=== PATIENT | male | born 1965 | race African-American/Black ===

== ENCOUNTER 2016-11-04 08:33 | Inpatient (IN) | payer OTHER ==
[2016-11-04 09:37] VITALS: BMI 23.1
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
[2016-11-04] MEDS ORDERED: MENTHOL/PHENOL 1 EACH UD MM PRN (11:49)
[2016-11-04] MEDS ORDERED: guaiFENesin/D-METHORPHAN HB 10 ML UNIT-DOSE CUPS PO PRN (11:49)
[2016-11-04] MEDS ORDERED: MAGNESIUM HYDROX 2400MG/30ML ORAL SUSPENSION 30 ML CUP PO PRN (11:49)
[2016-11-04] MEDS ORDERED: MAG HYDROX/AL HYDROX/SIMETH 30 ML UNIT-DOSE CUP PO PRN (11:49)
[2016-11-04] MEDS ORDERED: LOPERAMIDE HCL 2 MG CAPSULE PO PRN (11:49)
[2016-11-04] MEDS ORDERED: IBUPROFEN 400 MG TABLET (FP) PO PRN (11:49)
[2016-11-04] MEDS ORDERED: MAGNESIUM CITRATE 300 ML BOTTLE PO PRN (11:49)
[2016-11-04] MEDS ORDERED: hydrOXYzine PAMOATE 25 MG CAPSULE (FP) PO PRN (11:49)
[2016-11-04] MEDS ORDERED: ACETAMINOPHEN 325 MG TABLET (FP) PO PRN (11:49)
[2016-11-04] MEDS ORDERED: P-EPHED 60MG/TRIPROLIDI 2.5MG TABLET PO PRN (11:49)
[2016-11-04] MEDS ORDERED: diphenhydrAMINE HCL 50 MG CAPSULE PO PRN (11:49)
[2016-11-04 14:07] LABS: MCH 29.5 pg (25.7-33.7); MEAN CELL VOLUME 86.9 fl (80-96); MEAN PLT VOLUME 9.8 fl (7.5-11.1); PLATELET COUNT 221 K/MM3 (134-434); RDW 12.8 % (11.9-15.9); WHITE BLOOD COUNT 5.5 K/mm3 (4.0-10.0)
[2016-11-04 15:16] LABS: ALBUMIN 3.7 g/dl (3.4-5.0); BILIRUBIN,TOTAL 0.5 mg/dL (0.2-1.0); CALCIUM 8.8 mg/dL (8.5-10.1); COCKROFT - GAULT 67.03; CREATININE 1.3 mg/dL (0.7-1.3); TOT PROT 7.9 g/dl (6.4-8.2)
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
[2016-11-04] MEDS: PATIENT'S OWN MEDICATION (NON-FORMULARY) (Gabapentin [Neurontin] 800 MG) PO SCH ×2 (15:40→20:42)
[2016-11-04 16:57] LABS: URINE APPEARANCE CLEAR; URINE BILIRUBIN NEGATIVE (NEGATIVE); URINE BLOOD NEGATIVE (NEGATIVE); URINE COLOR YELLOW; URINE GLUCOSE (UA) NEGATIVE (NEGATIVE); URINE KETONE NEGATIVE (NEGATIVE); URINE LEUK ESTERASE NEGATIVE (NEGATIVE); URINE NITRITE NEGATIVE (NEGATIVE); URINE PROTEIN NEGATIVE (NEGATIVE); URINE UROBILINOGEN 2.0 E.U/dl E.U./dl (0.2-1.0)
[2016-11-04] MEDS: THIAMINE HCL 100 MG TABLET (FP) PO SCH (21:41)
[2016-11-04] MEDS: PATIENT'S OWN MEDICATION (NON-FORMULARY) (Dolutegravir Sodium 50 MG) PO SCH (21:41)
[2016-11-04] MEDS: PATIENT'S OWN MEDICATION (NON-FORMULARY) (Ritonavir [Norvir -] 100 MG) PO SCH (21:41)
[2016-11-04] MEDS: DARUNAVIR ETHANOLATE 800 MG TAB PO SCH (21:44)
[2016-11-04] MEDS: TENOFOVIR DISOPROXIL FUMARATE 300 MG TABLET PO SCH (21:44)
[2016-11-04] MEDS: traZODone HCL 50 MG TABLET (FP) PO SCH (21:44)
[2016-11-05] MEDS: PATIENT'S OWN MEDICATION (NON-FORMULARY) (Gabapentin [Neurontin] 800 MG) PO SCH ×3 (06:44→21:29)
[2016-11-05] MEDS: ASPIRIN 81 MG CHEWABLE TABLETS PO SCH (10:25)
[2016-11-05] MEDS: PRENATAL VITAMINS W/ FOLIC ACID TABLET (FP) PO SCH (10:25)
[2016-11-05] MEDS: SULFAMETHOXAZOLE/TRIMETHOPRIM 800MG/160MG D.S. TABLET PO SCH (10:25)
--- NOTE | 2016-11-05 14:30 | EKG ---
Test Reason : Blood Pressure : / mmHG Vent. Rate : 060 BPM Atrial Rate : 060 BPM P-R Int : 144 ms QRS Dur : 112 ms QT Int : 404 ms P-R-T Axes : 071 056 -08 degrees QTc Int : 404 ms SINUS RHYTHM WITH PREMATURE SUPRAVENTRICULAR COMPLEXES VOLTAGE CRITERIA FOR LEFT VENTRICULAR HYPERTROPHY NONSPECIFIC T WAVE ABNORMALITY ABNORMAL ECG NO PREVIOUS ECGS AVAILABLE Confirmed by MAXIM SHELBY MD ([id number]) on 11/05/2016 2:30:17 PM Referred By: Claudette El Confirmed By:MAXIM SHELBY MD
[2016-11-05] MEDS: DARUNAVIR ETHANOLATE 800 MG TAB PO SCH (21:29)
[2016-11-05] MEDS: PATIENT'S OWN MEDICATION (NON-FORMULARY) (Dolutegravir Sodium 50 MG) PO SCH (21:29)
[2016-11-05] MEDS: traZODone HCL 50 MG TABLET (FP) PO SCH (21:29)
[2016-11-05] MEDS: TENOFOVIR DISOPROXIL FUMARATE 300 MG TABLET PO SCH (21:29)
[2016-11-05] MEDS: PATIENT'S OWN MEDICATION (NON-FORMULARY) (Ritonavir [Norvir -] 100 MG) PO SCH (21:29)
[2016-11-05] MEDS: THIAMINE HCL 100 MG TABLET (FP) PO SCH (21:29)
[2016-11-06] MEDS: PATIENT'S OWN MEDICATION (NON-FORMULARY) (Gabapentin [Neurontin] 800 MG) PO SCH ×3 (06:32→21:27)
[2016-11-06] MEDS: PRENATAL VITAMINS W/ FOLIC ACID TABLET (FP) PO SCH (10:16)
[2016-11-06] MEDS: SULFAMETHOXAZOLE/TRIMETHOPRIM 800MG/160MG D.S. TABLET PO SCH (10:16)
[2016-11-06] MEDS: ASPIRIN 81 MG CHEWABLE TABLETS PO SCH (10:16)
[2016-11-06] MEDS: DARUNAVIR ETHANOLATE 800 MG TAB PO SCH (21:26)
[2016-11-06] MEDS: traZODone HCL 100 MG TABLET (FP) PO SCH (21:26)
[2016-11-06] MEDS: PATIENT'S OWN MEDICATION (NON-FORMULARY) (Ritonavir [Norvir -] 100 MG) PO SCH (21:26)
[2016-11-06] MEDS: TENOFOVIR DISOPROXIL FUMARATE 300 MG TABLET PO SCH (21:27)
[2016-11-06] MEDS: THIAMINE HCL 100 MG TABLET (FP) PO SCH (21:27)
[2016-11-06] MEDS: PATIENT'S OWN MEDICATION (NON-FORMULARY) (Dolutegravir Sodium 50 MG) PO SCH (21:28)
[2016-11-07] MEDS: PATIENT'S OWN MEDICATION (NON-FORMULARY) (Gabapentin [Neurontin] 800 MG) PO SCH ×3 (06:39→21:32)
[2016-11-07] MEDS: ASPIRIN 81 MG CHEWABLE TABLETS PO SCH (10:03)
[2016-11-07] MEDS: SULFAMETHOXAZOLE/TRIMETHOPRIM 800MG/160MG D.S. TABLET PO SCH (10:03)
[2016-11-07] MEDS: PRENATAL VITAMINS W/ FOLIC ACID TABLET (FP) PO SCH (10:03)
[2016-11-07] MEDS: THIAMINE HCL 100 MG TABLET (FP) PO SCH (21:32)
[2016-11-07] MEDS: TENOFOVIR DISOPROXIL FUMARATE 300 MG TABLET PO SCH (21:32)
[2016-11-07] MEDS: DARUNAVIR ETHANOLATE 800 MG TAB PO SCH (21:32)
[2016-11-07] MEDS: traZODone HCL 100 MG TABLET (FP) PO SCH (21:32)
[2016-11-07] MEDS: PATIENT'S OWN MEDICATION (NON-FORMULARY) (Dolutegravir Sodium 50 MG) PO SCH (21:32)
[2016-11-07] MEDS: PATIENT'S OWN MEDICATION (NON-FORMULARY) (Ritonavir [Norvir -] 100 MG) PO SCH (21:32)
[2016-11-08] MEDS: PATIENT'S OWN MEDICATION (NON-FORMULARY) (Gabapentin [Neurontin] 800 MG) PO SCH ×3 (05:57→21:48)
[2016-11-08] MEDS: SULFAMETHOXAZOLE/TRIMETHOPRIM 800MG/160MG D.S. TABLET PO SCH (10:18)
[2016-11-08] MEDS: ASPIRIN 81 MG CHEWABLE TABLETS PO SCH (10:18)
[2016-11-08] MEDS: PRENATAL VITAMINS W/ FOLIC ACID TABLET (FP) PO SCH (10:18)
[2016-11-08] MEDS: traZODone HCL 100 MG TABLET (FP) PO SCH (21:47)
[2016-11-08] MEDS: DARUNAVIR ETHANOLATE 800 MG TAB PO SCH (21:48)
[2016-11-08] MEDS: PATIENT'S OWN MEDICATION (NON-FORMULARY) (Dolutegravir Sodium 50 MG) PO SCH (21:49)
[2016-11-08] MEDS: PATIENT'S OWN MEDICATION (NON-FORMULARY) (Ritonavir [Norvir -] 100 MG) PO SCH (21:49)
[2016-11-08] MEDS: TENOFOVIR DISOPROXIL FUMARATE 300 MG TABLET PO SCH (21:50)
[2016-11-08] MEDS: THIAMINE HCL 100 MG TABLET (FP) PO SCH (21:50)
[2016-11-09] MEDS: PATIENT'S OWN MEDICATION (NON-FORMULARY) (Gabapentin [Neurontin] 800 MG) PO SCH ×3 (06:21→21:43)
[2016-11-09] MEDS: PRENATAL VITAMINS W/ FOLIC ACID TABLET (FP) PO SCH (10:11)
[2016-11-09] MEDS: ASPIRIN 81 MG CHEWABLE TABLETS PO SCH (10:11)
[2016-11-09] MEDS: SULFAMETHOXAZOLE/TRIMETHOPRIM 800MG/160MG D.S. TABLET PO SCH (10:11)
[2016-11-09] MEDS: traZODone HCL 100 MG TABLET (FP) PO SCH (21:42)
[2016-11-09] MEDS: DARUNAVIR ETHANOLATE 800 MG TAB PO SCH (21:42)
[2016-11-09] MEDS: THIAMINE HCL 100 MG TABLET (FP) PO SCH (21:42)
[2016-11-09] MEDS: PATIENT'S OWN MEDICATION (NON-FORMULARY) (Dolutegravir Sodium 50 MG) PO SCH (21:43)
[2016-11-09] MEDS: PATIENT'S OWN MEDICATION (NON-FORMULARY) (Ritonavir [Norvir -] 100 MG) PO SCH (21:44)
[2016-11-09] MEDS: TENOFOVIR DISOPROXIL FUMARATE 300 MG TABLET PO SCH (21:46)
[2016-11-10] MEDS: PATIENT'S OWN MEDICATION (NON-FORMULARY) (Gabapentin [Neurontin] 800 MG) PO SCH ×3 (06:37→21:47)
[2016-11-10] MEDS: PRENATAL VITAMINS W/ FOLIC ACID TABLET (FP) PO SCH (10:08)
[2016-11-10] MEDS: ASPIRIN 81 MG CHEWABLE TABLETS PO SCH (10:08)
[2016-11-10] MEDS: SULFAMETHOXAZOLE/TRIMETHOPRIM 800MG/160MG D.S. TABLET PO SCH (10:08)
[2016-11-10] MEDS: traZODone HCL 100 MG TABLET (FP) PO SCH (21:46)
[2016-11-10] MEDS: DARUNAVIR ETHANOLATE 800 MG TAB PO SCH (21:46)
[2016-11-10] MEDS: THIAMINE HCL 100 MG TABLET (FP) PO SCH (21:46)
[2016-11-10] MEDS: PATIENT'S OWN MEDICATION (NON-FORMULARY) (Ritonavir [Norvir -] 100 MG) PO SCH (21:47)
[2016-11-10] MEDS: TENOFOVIR DISOPROXIL FUMARATE 300 MG TABLET PO SCH (21:47)
[2016-11-10] MEDS: PATIENT'S OWN MEDICATION (NON-FORMULARY) (Dolutegravir Sodium 50 MG) PO SCH (21:48)
[2016-11-11] MEDS: PATIENT'S OWN MEDICATION (NON-FORMULARY) (Gabapentin [Neurontin] 800 MG) PO SCH ×3 (06:08→21:35)
[2016-11-11] MEDS: SULFAMETHOXAZOLE/TRIMETHOPRIM 800MG/160MG D.S. TABLET PO SCH (10:33)
[2016-11-11] MEDS: ASPIRIN 81 MG CHEWABLE TABLETS PO SCH (10:33)
[2016-11-11] MEDS: PRENATAL VITAMINS W/ FOLIC ACID TABLET (FP) PO SCH (10:33)
[2016-11-11] MEDS: PATIENT'S OWN MEDICATION (NON-FORMULARY) (Ritonavir [Norvir -] 100 MG) PO SCH (21:35)
[2016-11-11] MEDS: DARUNAVIR ETHANOLATE 800 MG TAB PO SCH (21:35)
[2016-11-11] MEDS: PATIENT'S OWN MEDICATION (NON-FORMULARY) (Dolutegravir Sodium 50 MG) PO SCH (21:35)
[2016-11-11] MEDS: traZODone HCL 100 MG TABLET (FP) PO SCH (21:35)
[2016-11-11] MEDS: THIAMINE HCL 100 MG TABLET (FP) PO SCH (21:35)
[2016-11-11] MEDS: TENOFOVIR DISOPROXIL FUMARATE 300 MG TABLET PO SCH (21:36)
[2016-11-12] MEDS: PATIENT'S OWN MEDICATION (NON-FORMULARY) (Gabapentin [Neurontin] 800 MG) PO SCH ×3 (06:47→21:38)
[2016-11-12] MEDS: PRENATAL VITAMINS W/ FOLIC ACID TABLET (FP) PO SCH (09:59)
[2016-11-12] MEDS: ASPIRIN 81 MG CHEWABLE TABLETS PO SCH (09:59)
[2016-11-12] MEDS: SULFAMETHOXAZOLE/TRIMETHOPRIM 800MG/160MG D.S. TABLET PO SCH (09:59)
[2016-11-12] MEDS: traZODone HCL 100 MG TABLET (FP) PO SCH (21:36)
[2016-11-12] MEDS: DARUNAVIR ETHANOLATE 800 MG TAB PO SCH (21:36)
[2016-11-12] MEDS: THIAMINE HCL 100 MG TABLET (FP) PO SCH (21:37)
[2016-11-12] MEDS: TENOFOVIR DISOPROXIL FUMARATE 300 MG TABLET PO SCH (21:37)
[2016-11-12] MEDS: PATIENT'S OWN MEDICATION (NON-FORMULARY) (Dolutegravir Sodium 50 MG) PO SCH (21:39)
[2016-11-12] MEDS: PATIENT'S OWN MEDICATION (NON-FORMULARY) (Ritonavir [Norvir -] 100 MG) PO SCH (21:40)
[2016-11-13] MEDS: PATIENT'S OWN MEDICATION (NON-FORMULARY) (Gabapentin [Neurontin] 800 MG) PO SCH ×3 (06:27→21:43)
[2016-11-13] MEDS: SULFAMETHOXAZOLE/TRIMETHOPRIM 800MG/160MG D.S. TABLET PO SCH (10:33)
[2016-11-13] MEDS: ASPIRIN 81 MG CHEWABLE TABLETS PO SCH (10:33)
[2016-11-13] MEDS: PRENATAL VITAMINS W/ FOLIC ACID TABLET (FP) PO SCH (10:33)
[2016-11-13] MEDS: THIAMINE HCL 100 MG TABLET (FP) PO SCH (21:42)
[2016-11-13] MEDS: DARUNAVIR ETHANOLATE 800 MG TAB PO SCH (21:42)
[2016-11-13] MEDS: PATIENT'S OWN MEDICATION (NON-FORMULARY) (Dolutegravir Sodium 50 MG) PO SCH (21:43)
[2016-11-13] MEDS: traZODone HCL 100 MG TABLET (FP) PO SCH (21:43)
[2016-11-13] MEDS: TENOFOVIR DISOPROXIL FUMARATE 300 MG TABLET PO SCH (21:44)
[2016-11-13] MEDS: PATIENT'S OWN MEDICATION (NON-FORMULARY) (Ritonavir [Norvir -] 100 MG) PO SCH (21:44)
[2016-11-14] MEDS: PATIENT'S OWN MEDICATION (NON-FORMULARY) (Gabapentin [Neurontin] 800 MG) PO SCH ×3 (05:57→21:38)
[2016-11-14] MEDS: ASPIRIN 81 MG CHEWABLE TABLETS PO SCH (10:17)
[2016-11-14] MEDS: SULFAMETHOXAZOLE/TRIMETHOPRIM 800MG/160MG D.S. TABLET PO SCH (10:17)
[2016-11-14] MEDS: PRENATAL VITAMINS W/ FOLIC ACID TABLET (FP) PO SCH (10:17)
[2016-11-14] MEDS: PATIENT'S OWN MEDICATION (NON-FORMULARY) (Ritonavir [Norvir -] 100 MG) PO SCH (21:38)
[2016-11-14] MEDS: THIAMINE HCL 100 MG TABLET (FP) PO SCH (21:38)
[2016-11-14] MEDS: TENOFOVIR DISOPROXIL FUMARATE 300 MG TABLET PO SCH (21:38)
[2016-11-14] MEDS: PATIENT'S OWN MEDICATION (NON-FORMULARY) (Dolutegravir Sodium 50 MG) PO SCH (21:38)
[2016-11-14] MEDS: DARUNAVIR ETHANOLATE 800 MG TAB PO SCH (21:38)
[2016-11-14] MEDS: traZODone HCL 100 MG TABLET (FP) PO SCH (21:40)
[2016-11-15] MEDS: PATIENT'S OWN MEDICATION (NON-FORMULARY) (Gabapentin [Neurontin] 800 MG) PO SCH ×3 (06:39→21:29)
[2016-11-15] MEDS: ASPIRIN 81 MG CHEWABLE TABLETS PO SCH (10:28)
[2016-11-15] MEDS: SULFAMETHOXAZOLE/TRIMETHOPRIM 800MG/160MG D.S. TABLET PO SCH (10:28)
[2016-11-15] MEDS: PRENATAL VITAMINS W/ FOLIC ACID TABLET (FP) PO SCH (10:28)
[2016-11-15] MEDS ORDERED: PT OWN MED DRAWER 7, Y5N ONE (12:46)
[2016-11-15] MEDS ORDERED: traZODone HCL 50 MG TABLET (FP) ONE (19:20)
[2016-11-15] MEDS: PATIENT'S OWN MEDICATION (NON-FORMULARY) (Dolutegravir Sodium 50 MG) PO SCH (21:28)
[2016-11-15] MEDS: traZODone HCL 100 MG TABLET (FP) PO SCH (21:28)
[2016-11-15] MEDS: PATIENT'S OWN MEDICATION (NON-FORMULARY) (Ritonavir [Norvir -] 100 MG) PO SCH (21:28)
[2016-11-15] MEDS: DARUNAVIR ETHANOLATE 800 MG TAB PO SCH (21:28)
[2016-11-15] MEDS: THIAMINE HCL 100 MG TABLET (FP) PO SCH (21:29)
[2016-11-15] MEDS: TENOFOVIR DISOPROXIL FUMARATE 300 MG TABLET PO SCH (21:29)
[2016-11-16] MEDS: PATIENT'S OWN MEDICATION (NON-FORMULARY) (Gabapentin [Neurontin] 800 MG) PO SCH ×3 (06:31→21:30)
[2016-11-16] MEDS: ASPIRIN 81 MG CHEWABLE TABLETS PO SCH (10:23)
[2016-11-16] MEDS: SULFAMETHOXAZOLE/TRIMETHOPRIM 800MG/160MG D.S. TABLET PO SCH (10:23)
[2016-11-16] MEDS: PRENATAL VITAMINS W/ FOLIC ACID TABLET (FP) PO SCH (10:23)
[2016-11-16] MEDS: DARUNAVIR ETHANOLATE 800 MG TAB PO SCH (21:30)
[2016-11-16] MEDS: traZODone HCL 100 MG TABLET (FP) PO SCH (21:30)
[2016-11-16] MEDS: PATIENT'S OWN MEDICATION (NON-FORMULARY) (Dolutegravir Sodium 50 MG) PO SCH (21:31)
[2016-11-16] MEDS: PATIENT'S OWN MEDICATION (NON-FORMULARY) (Ritonavir [Norvir -] 100 MG) PO SCH (21:32)
[2016-11-16] MEDS: TENOFOVIR DISOPROXIL FUMARATE 300 MG TABLET PO SCH (21:32)
[2016-11-16] MEDS: THIAMINE HCL 100 MG TABLET (FP) PO SCH (21:33)
[2016-11-17] MEDS: PATIENT'S OWN MEDICATION (NON-FORMULARY) (Gabapentin [Neurontin] 800 MG) PO SCH (06:24)
[2016-11-17 06:50] VITALS: BP 102/66; PULSE 114; TEMP 98
[2016-11-17] MEDS: PRENATAL VITAMINS W/ FOLIC ACID TABLET (FP) PO SCH (10:35)
[2016-11-17] MEDS: ASPIRIN 81 MG CHEWABLE TABLETS PO SCH (10:35)
[2016-11-17] MEDS: SULFAMETHOXAZOLE/TRIMETHOPRIM 800MG/160MG D.S. TABLET PO SCH (10:35)
--- NOTE | 2016-11-17 11:56 | PN ---
Psychiatric Progress Note Vital Signs: Vital Signs Period Temp Pulse Resp BP Sys/Ortiz Pulse Ox Last 24 Hr 98.0 F 114 16-18 102/66 Date of Session: 11/17/16 Chief Complaint:: discharge visit HPI: The patient is addressing alcohol abuse, cocaine, cannabis, nicotine dependence comorbid Insomnia. ROS: HIV+medically managed. Current Side Effect: No Lab tests ordered: No Lab tests reviewed: Yes Provider note:: Patient has completed today his treatment and met his goals, will continue to address his issues at [facility] treatment program. He focused on insights he gained in this treatment, importance maintain abstinence and changing behavior for the utilization supports to prevent relapses. Trazodone well tolerated, patient reports his sleeps improved and no side- efefcts reported, scripts for 30 days provided. Patient is stable for discharge. Total face to face time:: 35 Mental Status Exam - Mental Status Exam Alert and Oriented to: Time, Place, Person Cognitive Function: Good Patient Appearance: Well Groomed Mood: Hopeful Affect: Appropriate, Mood Congruent Patient Behavior: Appropriate, Cooperative Speech Pattern: Clear, Appropriate Voice Loudness: Normal Thought Process: Intact, Goal Oriented Thought Disorder: Not Present Hallucinations: Denies Suicidal Ideation: Denies Homicidal Ideation: Denies Insight/Judgement: Fair Sleep: Well Appetite: Fair Muscle strength/Tone: Normal Gait/Station: Normal Psychiatric Treatment Plan - Problem List (4) Cocaine dependence Qualifiers: Substance use status: uncomplicated Qualified Code(s): F14.20 - Cocaine dependence, uncomplicated (7) Nicotine dependence Qualifiers: Nicotine product type: cigarettes Substance use status: uncomplicated Qualified Code(s): F17.210 - Nicotine dependence, cigarettes, uncomplicated
== END 2016-11-17 11:30 | disposition home or self-care (01) | DRG 772 ==
LOC: YASAS 08:33 → Y5N 11:57
PROVIDERS: ADMIT Psychiatry & Neurology Psychiatry; ATTEND Psychiatry & Neurology Psychiatry
PROC: HZ42ZZZ Group Counseling for Substance Abuse Treatment, Cognitive-Behavioral (ICD-10-PCS; principal; 2016-11-17)
DX: F14.20 Cocaine dependence, uncomplicated (principal); F12.20 Cannabis dependence, uncomplicated; F17.210 Nicotine dependence, cigarettes, uncomplicated; F10.10 Alcohol abuse, uncomplicated; F34.1 Dysthymic disorder; Z21 Asymptomatic human immunodeficiency virus [HIV] infection status; G47.00 Insomnia, unspecified; B99.8 Other infectious disease; G63 Polyneuropathy in diseases classified elsewhere; Z59.0 Homelessness
CPT/HCPCS: 36415; 80053; 81003; 85027; 86593; 93005; 93010

== ENCOUNTER 2018-08-05 12:58 | Inpatient (IN) | payer OTHER ==
[2018-08-05 13:14] VITALS: BMI 21.7
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
[2018-08-05] MEDS ORDERED: NICOTINE POLACRILEX 2 MG GUM BC PRN (15:20)
[2018-08-05] MEDS ORDERED: hydrOXYzine PAMOATE 25 MG CAPSULE (FP) PO PRN (15:20)
[2018-08-05] MEDS ORDERED: MAG HYDROX/AL HYDROX/SIMETH 30 ML UNIT-DOSE CUP PO PRN (15:20)
[2018-08-05] MEDS ORDERED: MENTHOL/PHENOL 1 EACH UD MM PRN (15:20)
[2018-08-05] MEDS ORDERED: P-EPHED 60MG/TRIPROLIDI 2.5MG TABLET PO PRN (15:20)
[2018-08-05] MEDS ORDERED: MAGNESIUM CITRATE 300 ML BOTTLE PO PRN (15:20)
[2018-08-05] MEDS ORDERED: MAGNESIUM HYDROX 2400MG/30ML ORAL SUSPENSION 30 ML CUP PO PRN (15:20)
[2018-08-05] MEDS ORDERED: TUBERCULIN PPD 5 TU/0.1ML VIAL ID ONE ×2 (18:38→22:21)
[2018-08-05] MEDS: TENOFOVIR DISOPROXIL FUMARATE 300 MG TABLET PO SCH (21:24)
[2018-08-05] MEDS: DARUNAVIR ETHANOLATE 800 MG TAB PO SCH (21:24)
[2018-08-05] MEDS: CARVEDILOL 3.125 MG TABLET (FP) PO SCH (21:24)
[2018-08-05] MEDS: APIXABAN 5 MG TABLET PO SCH (21:24)
[2018-08-05] MEDS: THIAMINE HCL 100 MG TABLET (FP) PO SCH (21:24)
[2018-08-05] MEDS: RITONAVIR 100 MG TABLET PO SCH (21:26)
[2018-08-05] MEDS: DOLUTEGRAVIR SODIUM 50 MG TABLET (NON-FORMULARY) PO SCH (21:27)
[2018-08-05] MEDS: PATIENT'S OWN MEDICATION (NON-FORMULARY) (Gabapentin [Neurontin] 800 MG) PO SCH (21:27)
[2018-08-06] MEDS: PATIENT'S OWN MEDICATION (NON-FORMULARY) (Gabapentin [Neurontin] 800 MG) PO SCH ×3 (06:54→21:02)
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
[2018-08-06] MEDS ORDERED: FUROSEMIDE 20 MG TABLET (FP) PO SCH (10:00)
[2018-08-06] MEDS: FUROSEMIDE 40 MG TABLET (FP) PO SCH (10:45)
[2018-08-06] MEDS: LOSARTAN POTASSIUM 25 MG TABLET PO SCH (10:45)
[2018-08-06] MEDS: APIXABAN 5 MG TABLET PO SCH ×2 (10:45→21:00)
[2018-08-06] MEDS: CARVEDILOL 3.125 MG TABLET (FP) PO SCH ×2 (10:46→21:01)
[2018-08-06 10:57] LABS: PH,URINE 7.5 (5.0-8.0); URINE APPEARANCE Clear; URINE BILIRUBIN Negative (<2.0 mg/dL); URINE COLOR Yellow; URINE GLUCOSE (UA) Negative (NEGATIVE); URINE KETONE Negative (NEGATIVE); URINE LEUK ESTERASE Negative (NEGATIVE); URINE NITRITE Negative (NEGATIVE); URINE PROTEIN Negative (NEGATIVE); URINE UROBILINOGEN 0.2 mg/dL (0.2-1.0)
[2018-08-06 12:14] LABS: HEMATOCRIT 38.5 % (35.4-49); HEMOGLOBIN 13.1 GM/dL (11.7-16.9); MCH 29.6 pg (25.7-33.7); MEAN PLT VOLUME 9.5 fl (7.5-11.1); PLATELET COUNT 215 K/MM3 (134-434); RBC 4.43 M/mm3 (4.00-5.60); RDW 13.7 % (11.9-15.9); WHITE BLOOD COUNT 10.1 K/mm3 (4.0-10.0)
[2018-08-06 12:34] LABS: ALBUMIN 3.6 g/dl (3.4-5.0); ALK PHOS 63 U/L (45-117); ANION GAP 5 MMOL/L (8-16); BILIRUBIN,TOTAL 0.9 mg/dL (0.2-1); BLOOD UREA NITROGEN 17 mg/dL (7-18); CALCIUM 8.8 mg/dL (8.5-10.1); CHLORIDE 103 mmol/L (98-107); CO2 29 mmol/L (21-32); CREATININE 1.3 mg/dL (0.55-1.3); GLUCOSE,RANDOM 81 mg/dL (74-106); POTASSIUM 3.8 mmol/L (3.5-5.1); SGOT/AST 26 U/L (15-37); SGPT/ALT 26 U/L (13-61); SODIUM 136 mmol/L (136-145); TOT PROT 7.4 g/dl (6.4-8.2)
[2018-08-06] MEDS: PRENATAL VITAMINS W/ FOLIC ACID TABLET (FP) PO SCH (13:02)
[2018-08-06] MEDS ORDERED: PT OWN MED DRAWER 7, Y5N ONE ×3 (13:49→21:53)
[2018-08-06] MEDS: guaiFENesin/D-METHORPHAN HB 10 ML UNIT-DOSE CUPS PO PRN (14:04)
[2018-08-06] MEDS: DARUNAVIR ETHANOLATE 800 MG TAB PO SCH (21:00)
[2018-08-06] MEDS: THIAMINE HCL 100 MG TABLET (FP) PO SCH (21:01)
[2018-08-06] MEDS: traZODone HCL 100 MG TABLET (FP) PO SCH (21:02)
[2018-08-06] MEDS: RITONAVIR 100 MG TABLET PO SCH (21:03)
[2018-08-06] MEDS: DOLUTEGRAVIR SODIUM 50 MG TABLET (NON-FORMULARY) PO SCH (21:04)
[2018-08-06] MEDS: TENOFOVIR DISOPROXIL FUMARATE 300 MG TABLET PO SCH (21:05)
[2018-08-07] MEDS: PATIENT'S OWN MEDICATION (NON-FORMULARY) (Gabapentin [Neurontin] 800 MG) PO SCH ×3 (06:17→21:22)
[2018-08-07] MEDS: FUROSEMIDE 40 MG TABLET (FP) PO SCH (10:30)
[2018-08-07] MEDS: LOSARTAN POTASSIUM 25 MG TABLET PO SCH (10:30)
[2018-08-07] MEDS: APIXABAN 5 MG TABLET PO SCH ×2 (10:30→21:21)
[2018-08-07] MEDS: PRENATAL VITAMINS W/ FOLIC ACID TABLET (FP) PO SCH (10:30)
[2018-08-07] MEDS: CARVEDILOL 3.125 MG TABLET (FP) PO SCH ×2 (10:31→21:22)
[2018-08-07] MEDS ORDERED: PT OWN MED DRAWER 7, Y5N ONE ×2 (13:21→20:09)
[2018-08-07] MEDS: traZODone HCL 100 MG TABLET (FP) PO SCH (21:20)
[2018-08-07] MEDS: DARUNAVIR ETHANOLATE 800 MG TAB PO SCH (21:21)
[2018-08-07] MEDS: TENOFOVIR DISOPROXIL FUMARATE 300 MG TABLET PO SCH (21:22)
[2018-08-07] MEDS: RITONAVIR 100 MG TABLET PO SCH (21:22)
[2018-08-07] MEDS: DOLUTEGRAVIR SODIUM 50 MG TABLET (NON-FORMULARY) PO SCH (21:22)
[2018-08-07] MEDS: THIAMINE HCL 100 MG TABLET (FP) PO SCH (21:23)
[2018-08-08] MEDS: PATIENT'S OWN MEDICATION (NON-FORMULARY) (Gabapentin [Neurontin] 800 MG) PO SCH ×3 (06:10→21:35)
[2018-08-08] MEDS: LOSARTAN POTASSIUM 25 MG TABLET PO SCH (09:55)
[2018-08-08] MEDS: APIXABAN 5 MG TABLET PO SCH ×2 (09:55→21:35)
[2018-08-08] MEDS: CARVEDILOL 3.125 MG TABLET (FP) PO SCH ×2 (09:55→21:33)
[2018-08-08] MEDS: FUROSEMIDE 40 MG TABLET (FP) PO SCH (09:55)
[2018-08-08] MEDS: PRENATAL VITAMINS W/ FOLIC ACID TABLET (FP) PO SCH (09:56)
[2018-08-08] MEDS: guaiFENesin/D-METHORPHAN HB 10 ML UNIT-DOSE CUPS PO PRN ×2 (12:06→21:42)
[2018-08-08] MEDS ORDERED: PT OWN MED DRAWER 7, Y5N ONE ×2 (14:52→21:01)
[2018-08-08] MEDS: THIAMINE HCL 100 MG TABLET (FP) PO SCH (21:33)
[2018-08-08] MEDS: DARUNAVIR ETHANOLATE 800 MG TAB PO SCH (21:33)
[2018-08-08] MEDS: traZODone HCL 100 MG TABLET (FP) PO SCH (21:33)
[2018-08-08] MEDS: MELATONIN 5 MG TABLETS PO PRN (21:34)
[2018-08-08] MEDS: TENOFOVIR DISOPROXIL FUMARATE 300 MG TABLET PO SCH (21:35)
[2018-08-08] MEDS: DOLUTEGRAVIR SODIUM 50 MG TABLET (NON-FORMULARY) PO SCH (21:35)
[2018-08-08] MEDS: RITONAVIR 100 MG TABLET PO SCH (21:35)
[2018-08-09] MEDS: PATIENT'S OWN MEDICATION (NON-FORMULARY) (Gabapentin [Neurontin] 800 MG) PO SCH ×3 (06:10→21:16)
[2018-08-09] MEDS: guaiFENesin/D-METHORPHAN HB 10 ML UNIT-DOSE CUPS PO PRN ×2 (06:11→12:42)
[2018-08-09] MEDS: PRENATAL VITAMINS W/ FOLIC ACID TABLET (FP) PO SCH (10:29)
[2018-08-09] MEDS: LOSARTAN POTASSIUM 25 MG TABLET PO SCH (10:30)
[2018-08-09] MEDS: FUROSEMIDE 40 MG TABLET (FP) PO SCH (10:30)
[2018-08-09] MEDS: CARVEDILOL 3.125 MG TABLET (FP) PO SCH ×2 (10:30→21:14)
[2018-08-09] MEDS ORDERED: PT OWN MED DRAWER 7, Y5N ONE ×3 (10:32→20:42)
[2018-08-09] MEDS: APIXABAN 5 MG TABLET PO SCH ×2 (10:33→21:14)
[2018-08-09] MEDS: THIAMINE HCL 100 MG TABLET (FP) PO SCH (21:14)
[2018-08-09] MEDS: DARUNAVIR ETHANOLATE 800 MG TAB PO SCH (21:14)
[2018-08-09] MEDS: traZODone HCL 100 MG TABLET (FP) PO SCH (21:14)
[2018-08-09] MEDS: MELATONIN 5 MG TABLETS PO PRN (21:16)
[2018-08-09] MEDS: DOLUTEGRAVIR SODIUM 50 MG TABLET (NON-FORMULARY) PO SCH (21:16)
[2018-08-09] MEDS: RITONAVIR 100 MG TABLET PO SCH (21:17)
[2018-08-09] MEDS: TENOFOVIR DISOPROXIL FUMARATE 300 MG TABLET PO SCH (21:17)
[2018-08-10] MEDS: guaiFENesin/D-METHORPHAN HB 10 ML UNIT-DOSE CUPS PO PRN ×2 (03:35→14:15)
[2018-08-10] MEDS: PATIENT'S OWN MEDICATION (NON-FORMULARY) (Gabapentin [Neurontin] 800 MG) PO SCH ×3 (06:32→22:00)
[2018-08-10] MEDS: PRENATAL VITAMINS W/ FOLIC ACID TABLET (FP) PO SCH (10:40)
[2018-08-10] MEDS: FUROSEMIDE 40 MG TABLET (FP) PO SCH (10:40)
[2018-08-10] MEDS: APIXABAN 5 MG TABLET PO SCH ×2 (10:40→22:01)
[2018-08-10] MEDS: CARVEDILOL 3.125 MG TABLET (FP) PO SCH ×2 (10:41→21:55)
[2018-08-10] MEDS: LOSARTAN POTASSIUM 25 MG TABLET PO SCH (10:41)
--- NOTE | 2018-08-10 11:02 | PN ---
S Progress Note Note: Patient complains about sleeping poorly despite taking Trazadone 100 mg at bedtime. Will increase Trazadone dosage to 150 mg po HS
[2018-08-10] MEDS ORDERED: PT OWN MED DRAWER 7, Y5N ONE ×3 (19:53→22:32)
[2018-08-10] MEDS: DARUNAVIR ETHANOLATE 800 MG TAB PO SCH (21:58)
[2018-08-10] MEDS: DOLUTEGRAVIR SODIUM 50 MG TABLET (NON-FORMULARY) PO SCH (21:59)
[2018-08-10] MEDS: RITONAVIR 100 MG TABLET PO SCH (22:00)
[2018-08-10] MEDS: TENOFOVIR DISOPROXIL FUMARATE 300 MG TABLET PO SCH (22:01)
[2018-08-10] MEDS: traZODone HCL 50 MG TABLET (FP) PO SCH (22:02)
[2018-08-10] MEDS: THIAMINE HCL 100 MG TABLET (FP) PO SCH (22:03)
[2018-08-11] MEDS: guaiFENesin/D-METHORPHAN HB 10 ML UNIT-DOSE CUPS PO PRN (03:37)
[2018-08-11] MEDS ORDERED: PT OWN MED DRAWER 7, Y5N ONE ×3 (05:16→14:18)
[2018-08-11] MEDS: PATIENT'S OWN MEDICATION (NON-FORMULARY) (Gabapentin [Neurontin] 800 MG) PO SCH ×3 (06:23→21:50)
[2018-08-11] MEDS: ACETAMINOPHEN 325 MG TABLET (FP) PO PRN ×2 (06:24→14:38)
[2018-08-11] MEDS: CARVEDILOL 3.125 MG TABLET (FP) PO SCH ×2 (11:04→21:50)
[2018-08-11] MEDS: FUROSEMIDE 40 MG TABLET (FP) PO SCH (11:04)
[2018-08-11] MEDS: PRENATAL VITAMINS W/ FOLIC ACID TABLET (FP) PO SCH (11:04)
[2018-08-11] MEDS: LOSARTAN POTASSIUM 25 MG TABLET PO SCH (11:04)
[2018-08-11] MEDS: APIXABAN 5 MG TABLET PO SCH ×2 (11:04→21:50)
[2018-08-11] MEDS: THIAMINE HCL 100 MG TABLET (FP) PO SCH (21:50)
[2018-08-11] MEDS: traZODone HCL 50 MG TABLET (FP) PO SCH (21:50)
[2018-08-11] MEDS: RITONAVIR 100 MG TABLET PO SCH (21:51)
[2018-08-11] MEDS: DOLUTEGRAVIR SODIUM 50 MG TABLET (NON-FORMULARY) PO SCH (21:51)
[2018-08-11] MEDS: DARUNAVIR ETHANOLATE 800 MG TAB PO SCH (21:51)
[2018-08-11] MEDS: TENOFOVIR DISOPROXIL FUMARATE 300 MG TABLET PO SCH (21:51)
[2018-08-12] MEDS: guaiFENesin/D-METHORPHAN HB 10 ML UNIT-DOSE CUPS PO PRN (00:21)
[2018-08-12] MEDS: ACETAMINOPHEN 325 MG TABLET (FP) PO PRN ×3 (06:17→22:47)
[2018-08-12] MEDS: PATIENT'S OWN MEDICATION (NON-FORMULARY) (Gabapentin [Neurontin] 800 MG) PO SCH ×3 (06:17→22:49)
[2018-08-12] MEDS: FUROSEMIDE 40 MG TABLET (FP) PO SCH (10:42)
[2018-08-12] MEDS: PRENATAL VITAMINS W/ FOLIC ACID TABLET (FP) PO SCH (10:42)
[2018-08-12] MEDS: APIXABAN 5 MG TABLET PO SCH ×2 (10:42→22:47)
[2018-08-12] MEDS: LOSARTAN POTASSIUM 25 MG TABLET PO SCH (10:42)
[2018-08-12] MEDS: CARVEDILOL 3.125 MG TABLET (FP) PO SCH ×2 (10:42→22:47)
[2018-08-12] MEDS ORDERED: PT OWN MED DRAWER 7, Y5N ONE (20:33)
[2018-08-12] MEDS: traZODone HCL 50 MG TABLET (FP) PO SCH (22:48)
[2018-08-12] MEDS: DARUNAVIR ETHANOLATE 800 MG TAB PO SCH (22:49)
[2018-08-12] MEDS: TENOFOVIR DISOPROXIL FUMARATE 300 MG TABLET PO SCH (22:49)
[2018-08-12] MEDS: DOLUTEGRAVIR SODIUM 50 MG TABLET (NON-FORMULARY) PO SCH (22:49)
[2018-08-12] MEDS: THIAMINE HCL 100 MG TABLET (FP) PO SCH (22:49)
[2018-08-12] MEDS: RITONAVIR 100 MG TABLET PO SCH (22:49)
[2018-08-13] MEDS: PATIENT'S OWN MEDICATION (NON-FORMULARY) (Gabapentin [Neurontin] 800 MG) PO SCH ×3 (07:04→21:28)
[2018-08-13] MEDS: FUROSEMIDE 40 MG TABLET (FP) PO SCH (10:21)
[2018-08-13] MEDS: LOSARTAN POTASSIUM 25 MG TABLET PO SCH (10:21)
[2018-08-13] MEDS: CARVEDILOL 3.125 MG TABLET (FP) PO SCH ×2 (10:21→21:27)
[2018-08-13] MEDS: APIXABAN 5 MG TABLET PO SCH ×2 (10:21→21:27)
[2018-08-13] MEDS: PRENATAL VITAMINS W/ FOLIC ACID TABLET (FP) PO SCH (10:21)
[2018-08-13] MEDS: guaiFENesin/D-METHORPHAN HB 10 ML UNIT-DOSE CUPS PO PRN (13:08)
[2018-08-13] MEDS: traZODone HCL 50 MG TABLET (FP) PO SCH (21:28)
[2018-08-13] MEDS: TENOFOVIR DISOPROXIL FUMARATE 300 MG TABLET PO SCH (21:29)
[2018-08-13] MEDS: RITONAVIR 100 MG TABLET PO SCH (21:29)
[2018-08-13] MEDS: DARUNAVIR ETHANOLATE 800 MG TAB PO SCH (21:29)
[2018-08-13] MEDS: DOLUTEGRAVIR SODIUM 50 MG TABLET (NON-FORMULARY) PO SCH (21:29)
[2018-08-13] MEDS: THIAMINE HCL 100 MG TABLET (FP) PO SCH (22:52)
[2018-08-14] MEDS: guaiFENesin/D-METHORPHAN HB 10 ML UNIT-DOSE CUPS PO PRN (00:51)
[2018-08-14] MEDS: ACETAMINOPHEN 325 MG TABLET (FP) PO PRN (03:23)
[2018-08-14] MEDS: PATIENT'S OWN MEDICATION (NON-FORMULARY) (Gabapentin [Neurontin] 800 MG) PO SCH ×3 (06:26→21:37)
[2018-08-14] MEDS: CARVEDILOL 3.125 MG TABLET (FP) PO SCH ×2 (10:40→21:35)
[2018-08-14] MEDS: LOSARTAN POTASSIUM 25 MG TABLET PO SCH (10:40)
[2018-08-14] MEDS: APIXABAN 5 MG TABLET PO SCH ×2 (10:40→21:35)
[2018-08-14] MEDS: PRENATAL VITAMINS W/ FOLIC ACID TABLET (FP) PO SCH (10:40)
[2018-08-14] MEDS: FUROSEMIDE 40 MG TABLET (FP) PO SCH (10:40)
[2018-08-14] MEDS ORDERED: PT OWN MED DRAWER 7, Y5N ONE ×2 (20:24→22:07)
[2018-08-14] MEDS: traZODone HCL 50 MG TABLET (FP) PO SCH (21:35)
[2018-08-14] MEDS: THIAMINE HCL 100 MG TABLET (FP) PO SCH (21:36)
[2018-08-14] MEDS: DOLUTEGRAVIR SODIUM 50 MG TABLET (NON-FORMULARY) PO SCH (21:37)
[2018-08-14] MEDS: RITONAVIR 100 MG TABLET PO SCH (21:37)
[2018-08-14] MEDS: DARUNAVIR ETHANOLATE 800 MG TAB PO SCH (21:37)
[2018-08-14] MEDS: TENOFOVIR DISOPROXIL FUMARATE 300 MG TABLET PO SCH (21:37)
[2018-08-15] MEDS: PATIENT'S OWN MEDICATION (NON-FORMULARY) (Gabapentin [Neurontin] 800 MG) PO SCH ×3 (06:47→21:38)
[2018-08-15] MEDS: FUROSEMIDE 40 MG TABLET (FP) PO SCH (10:42)
[2018-08-15] MEDS: PRENATAL VITAMINS W/ FOLIC ACID TABLET (FP) PO SCH (10:42)
[2018-08-15] MEDS: LOSARTAN POTASSIUM 25 MG TABLET PO SCH (10:42)
[2018-08-15] MEDS: APIXABAN 5 MG TABLET PO SCH ×2 (10:42→21:37)
[2018-08-15] MEDS: CARVEDILOL 3.125 MG TABLET (FP) PO SCH ×2 (10:42→21:36)
[2018-08-15] MEDS ORDERED: PT OWN MED DRAWER 7, Y5N ONE (19:06)
[2018-08-15] MEDS: THIAMINE HCL 100 MG TABLET (FP) PO SCH (21:36)
[2018-08-15] MEDS: traZODone HCL 50 MG TABLET (FP) PO SCH (21:37)
[2018-08-15] MEDS: TENOFOVIR DISOPROXIL FUMARATE 300 MG TABLET PO SCH (21:37)
[2018-08-15] MEDS: DARUNAVIR ETHANOLATE 800 MG TAB PO SCH (21:37)
[2018-08-15] MEDS: DOLUTEGRAVIR SODIUM 50 MG TABLET (NON-FORMULARY) PO SCH (21:38)
[2018-08-15] MEDS: RITONAVIR 100 MG TABLET PO SCH (21:38)
[2018-08-16] MEDS: guaiFENesin/D-METHORPHAN HB 10 ML UNIT-DOSE CUPS PO PRN (02:40)
[2018-08-16] MEDS: PATIENT'S OWN MEDICATION (NON-FORMULARY) (Gabapentin [Neurontin] 800 MG) PO SCH ×3 (06:06→21:45)
[2018-08-16] MEDS ORDERED: PT OWN MED DRAWER 7, Y5N ONE ×3 (09:35→20:03)
[2018-08-16] MEDS: CARVEDILOL 3.125 MG TABLET (FP) PO SCH ×2 (10:33→21:44)
[2018-08-16] MEDS: FUROSEMIDE 40 MG TABLET (FP) PO SCH (10:33)
[2018-08-16] MEDS: PRENATAL VITAMINS W/ FOLIC ACID TABLET (FP) PO SCH (10:33)
[2018-08-16] MEDS: LOSARTAN POTASSIUM 25 MG TABLET PO SCH (10:33)
[2018-08-16] MEDS: APIXABAN 5 MG TABLET PO SCH ×2 (11:58→21:44)
[2018-08-16] MEDS: DARUNAVIR ETHANOLATE 800 MG TAB PO SCH (21:43)
[2018-08-16] MEDS: THIAMINE HCL 100 MG TABLET (FP) PO SCH (21:43)
[2018-08-16] MEDS: TENOFOVIR DISOPROXIL FUMARATE 300 MG TABLET PO SCH (21:45)
[2018-08-16] MEDS: RITONAVIR 100 MG TABLET PO SCH (21:45)
[2018-08-16] MEDS: traZODone HCL 50 MG TABLET (FP) PO SCH (21:45)
[2018-08-16] MEDS: DOLUTEGRAVIR SODIUM 50 MG TABLET (NON-FORMULARY) PO SCH (21:45)
[2018-08-17] MEDS: PATIENT'S OWN MEDICATION (NON-FORMULARY) (Gabapentin [Neurontin] 800 MG) PO SCH ×3 (05:38→21:20)
[2018-08-17] MEDS: PRENATAL VITAMINS W/ FOLIC ACID TABLET (FP) PO SCH (10:37)
[2018-08-17] MEDS: CARVEDILOL 3.125 MG TABLET (FP) PO SCH ×2 (10:38→21:16)
[2018-08-17] MEDS: LOSARTAN POTASSIUM 25 MG TABLET PO SCH (10:38)
[2018-08-17] MEDS: APIXABAN 5 MG TABLET PO SCH ×2 (10:38→21:15)
[2018-08-17] MEDS: FUROSEMIDE 40 MG TABLET (FP) PO SCH (10:38)
[2018-08-17] MEDS ORDERED: PT OWN MED DRAWER 7, Y5N ONE ×2 (14:02→21:21)
[2018-08-17] MEDS: DARUNAVIR ETHANOLATE 800 MG TAB PO SCH (21:15)
[2018-08-17] MEDS: THIAMINE HCL 100 MG TABLET (FP) PO SCH (21:16)
[2018-08-17] MEDS: MELATONIN 5 MG TABLETS PO PRN (21:17)
[2018-08-17] MEDS: traZODone HCL 50 MG TABLET (FP) PO SCH (21:18)
[2018-08-17] MEDS: RITONAVIR 100 MG TABLET PO SCH (21:21)
[2018-08-17] MEDS: DOLUTEGRAVIR SODIUM 50 MG TABLET (NON-FORMULARY) PO SCH (21:21)
[2018-08-17] MEDS: TENOFOVIR DISOPROXIL FUMARATE 300 MG TABLET PO SCH (21:22)
[2018-08-18] MEDS: PATIENT'S OWN MEDICATION (NON-FORMULARY) (Gabapentin [Neurontin] 800 MG) PO SCH ×3 (06:09→21:25)
[2018-08-18] MEDS: CARVEDILOL 3.125 MG TABLET (FP) PO SCH ×2 (10:27→21:25)
[2018-08-18] MEDS: FUROSEMIDE 40 MG TABLET (FP) PO SCH (10:27)
[2018-08-18] MEDS: APIXABAN 5 MG TABLET PO SCH ×2 (10:27→21:24)
[2018-08-18] MEDS: LOSARTAN POTASSIUM 25 MG TABLET PO SCH (10:27)
[2018-08-18] MEDS: PRENATAL VITAMINS W/ FOLIC ACID TABLET (FP) PO SCH (10:28)
[2018-08-18] MEDS ORDERED: PT OWN MED DRAWER 7, Y5N ONE ×2 (14:04→20:29)
[2018-08-18] MEDS: THIAMINE HCL 100 MG TABLET (FP) PO SCH (21:24)
[2018-08-18] MEDS: DARUNAVIR ETHANOLATE 800 MG TAB PO SCH (21:24)
[2018-08-18] MEDS: traZODone HCL 50 MG TABLET (FP) PO SCH (21:25)
[2018-08-18] MEDS: TENOFOVIR DISOPROXIL FUMARATE 300 MG TABLET PO SCH (21:25)
[2018-08-18] MEDS: RITONAVIR 100 MG TABLET PO SCH (21:25)
[2018-08-18] MEDS: DOLUTEGRAVIR SODIUM 50 MG TABLET (NON-FORMULARY) PO SCH (21:25)
[2018-08-19] MEDS: PATIENT'S OWN MEDICATION (NON-FORMULARY) (Gabapentin [Neurontin] 800 MG) PO SCH ×3 (06:30→22:11)
[2018-08-19] MEDS: LOSARTAN POTASSIUM 25 MG TABLET PO SCH (10:27)
[2018-08-19] MEDS: FUROSEMIDE 40 MG TABLET (FP) PO SCH (10:27)
[2018-08-19] MEDS: APIXABAN 5 MG TABLET PO SCH ×2 (10:27→21:41)
[2018-08-19] MEDS: CARVEDILOL 3.125 MG TABLET (FP) PO SCH ×2 (10:27→21:40)
[2018-08-19] MEDS: PRENATAL VITAMINS W/ FOLIC ACID TABLET (FP) PO SCH (10:27)
--- NOTE | 2018-08-19 13:24 | PN ---
[facility] Progress Note Note: PATIENT SCHEDULED FOR DISCHARGE FROM REHAB TOMORROW, 08/20/18. PATIENT REPORTS ACHIEVING ALL GOALS OF TREATMENT. PATIENT SCHEDULED TO FOLLOW UP WITH [facility] FOR AFTERCARE. PATIENT IS MEDICALLY STABLE AT THIS TIME AND DENIES SI/HI. PATIENT'S LAST PRESCRIPTIONS FOR MEDICATIONS SENT 08/03/18 AND PATIENT REPORTS HAVING ALL MEDS IN BELONGINGS. PATIENT RECOMMENDED TO FOLLOW UP WITH PCP FOR ONGOING MEDICAL TREATMENT AND TO ATTEND GROUP MEETINGS TO PREVENT RELAPSE. Vital Signs Temperature 97.6 F 08/19/18 07:13 Pulse Rate 63 08/19/18 07:13 Respiratory Rate 18 08/19/18 07:13 Blood Pressure 137/75 08/19/18 07:13 O2 Sat by Pulse Oximetry (%)
[2018-08-19] MEDS ORDERED: PT OWN MED DRAWER 7, Y5N ONE ×2 (14:17→21:44)
[2018-08-19] MEDS: THIAMINE HCL 100 MG TABLET (FP) PO SCH (21:39)
[2018-08-19] MEDS: traZODone HCL 50 MG TABLET (FP) PO SCH (21:40)
[2018-08-19] MEDS: TENOFOVIR DISOPROXIL FUMARATE 300 MG TABLET PO SCH (21:44)
[2018-08-19] MEDS: DARUNAVIR ETHANOLATE 800 MG TAB PO SCH (21:44)
[2018-08-19] MEDS: DOLUTEGRAVIR SODIUM 50 MG TABLET (NON-FORMULARY) PO SCH (21:44)
[2018-08-19] MEDS: RITONAVIR 100 MG TABLET PO SCH (22:11)
[2018-08-20] MEDS: PATIENT'S OWN MEDICATION (NON-FORMULARY) (Gabapentin [Neurontin] 800 MG) PO SCH (06:20)
[2018-08-20 06:57] VITALS: BP 114/71; PULSE 67; TEMP 98.1
[2018-08-20] MEDS: LOSARTAN POTASSIUM 25 MG TABLET PO SCH (09:44)
[2018-08-20] MEDS: FUROSEMIDE 40 MG TABLET (FP) PO SCH (09:44)
[2018-08-20] MEDS: PRENATAL VITAMINS W/ FOLIC ACID TABLET (FP) PO SCH (09:44)
[2018-08-20] MEDS: CARVEDILOL 3.125 MG TABLET (FP) PO SCH (09:44)
[2018-08-20] MEDS: APIXABAN 5 MG TABLET PO SCH (09:44)
[2018-08-20] MEDS ORDERED: PT OWN MED DRAWER 7, Y5N ONE (09:51)
== END 2018-08-20 10:00 | disposition home or self-care (01) | DRG 772 ==
LOC: YASAS 12:58 → Y3W 15:51
PROVIDERS: ADMIT Psychiatry & Neurology Psychiatry; ATTEND Psychiatry & Neurology Psychiatry
PROC: HZ42ZZZ Group Counseling for Substance Abuse Treatment, Cognitive-Behavioral (ICD-10-PCS; principal; 2018-08-05)
DX: F14.20 Cocaine dependence, uncomplicated (principal); F12.20 Cannabis dependence, uncomplicated; F10.10 Alcohol abuse, uncomplicated; F17.210 Nicotine dependence, cigarettes, uncomplicated; F19.282 Other psychoactive substance dependence with psychoactive substance-induced sleep disorder; Z21 Asymptomatic human immunodeficiency virus [HIV] infection status; I48.91 Unspecified atrial fibrillation; I10 Essential (primary) hypertension; G63 Polyneuropathy in diseases classified elsewhere; Z59.0 Homelessness
CPT/HCPCS: 36415; 80053; 81003; 85027; 86593

== ENCOUNTER 2023-05-20 13:31 | Inpatient (IN) | payer OTHER ==
[2023-05-20] MEDS ORDERED: MAG HYDROX/AL HYDROX/SIMETH 30 ML UNIT-DOSE CUP PO PRN (14:52)
[2023-05-20] MEDS ORDERED: POLYETHYLENE GLYCOL (HEALTHYLAX) 3350 17 GM PACKET PO PRN (14:52)
[2023-05-20] MEDS ORDERED: MAGNESIUM HYDROX 2400MG/30ML ORAL SUSPENSION 30 ML CUP PO PRN (14:52)
[2023-05-20] MEDS ORDERED: IBUPROFEN 400 MG TABLET (FP) PO PRN (14:52)
[2023-05-20] MEDS ORDERED: LOPERAMIDE HCL 2 MG CAPSULE PO PRN (14:52)
[2023-05-20] MEDS ORDERED: ACETAMINOPHEN 325 MG TABLET (FP) PO PRN (14:52)
[2023-05-20] MEDS ORDERED: COLLOIDAL OATMEAL 1 BAR EACH TP PRN (14:52)
[2023-05-20] MEDS ORDERED: NALOXONE HCL 0.4 MG/ML VIAL IM PRN (14:52)
[2023-05-20] MEDS ORDERED: BENZOCAINE/MENTHOL (CHLORASEPTIC ) LOZENGE MM PRN (14:52)
[2023-05-20] MEDS ORDERED: IBUPROFEN 600 MG TABLET (FP) PO PRN (14:52)
[2023-05-20] MEDS ORDERED: guaiFENesin 600 MG TABLET.ER (FP) PO PRN (14:52)
[2023-05-20] MEDS ORDERED: NICOTINE POLACRILEX 2 MG GUM BUC PRN (14:52)
[2023-05-20] MEDS ORDERED: BENZONATATE 200 MG CAPSULE PO PRN (14:52)
[2023-05-20] MEDS ORDERED: NALOXONE HCL (KLOXXADO) 8 MG SPRAY NS PRN (14:52)
[2023-05-20] MEDS ORDERED: TUBERCULIN PPD 5 TU/0.1ML VIAL ID ONE (17:50)
[2023-05-20] MEDS ORDERED: TUBERCULIN PPD 5 TU/0.1ML SYRINGE (IN PATIENT USE ONLY) ID ONE (18:54)
[2023-05-20] MEDS: THIAMINE HCL 100 MG TABLET (FP) PO SCH (21:02)
[2023-05-20] MEDS: MELATONIN 5 MG TABLETS PO SCH (21:02)
[2023-05-21] MEDS: PRENATAL VITAMINS W/ FOLIC ACID TABLET (FP) PO SCH (10:05)
[2023-05-21] MEDS: NICOTINE 14 MG/24 HOURS TOPICAL PATCH TD SCH (10:06)
[2023-05-21 10:25] LABS: PH,URINE 5.5 (5.0-8.0); URINE APPEARANCE CLEAR; URINE BILIRUBIN NEGATIVE (NEGATIVE); URINE COLOR YELLOW; URINE GLUCOSE (UA) NEGATIVE (NEGATIVE); URINE KETONE NEGATIVE (NEGATIVE); URINE LEUK ESTERASE NEGATIVE (NEGATIVE); URINE NITRITE NEGATIVE (NEGATIVE); URINE PROTEIN NEGATIVE (NEGATIVE)
[2023-05-21 10:29] LABS: CHLORIDE 108 mmol/L (98-107); POTASSIUM 4.3 mmol/L (3.5-5.1); SODIUM 141 mmol/L (136-145)
[2023-05-21 10:31] LABS: HEMATOCRIT 36.2 % (35.4-49); HEMOGLOBIN 12.2 GM/dL (11.7-16.9); MCH 28.4 pg (25.7-33.7); MCHC 33.6 g/dl (32.0-35.9); MEAN CELL VOLUME 84.5 fl (80-96); PLATELET COUNT 182 10^3/uL (134-434); RBC 4.29 M/mm3 (4.00-5.60); RDW 13.6 % (11.9-15.9)
[2023-05-21 10:36] LABS: SGOT/AST 22 U/L (15-37)
[2023-05-21 10:38] LABS: TOT PROT 7.1 g/dl (6.4-8.2); WHITE BLOOD COUNT 1.9 K/mm3 (4.0-10.0)
[2023-05-21 11:14] LABS: ALBUMIN 3.2 g/dl (3.4-5.0); ALK PHOS 55 U/L (45-117); ANION GAP 2 mmol/L (4-13); BILIRUBIN,TOTAL 0.3 mg/dL (0.2-1); BLOOD UREA NITROGEN 17.1 mg/dL (7-18); CALCIUM 8.4 mg/dL (8.5-10.1); CO2 31 mmol/L (21-32); GLUCOSE,RANDOM 104 mg/dL (74-106); SGPT/ALT 29 U/L (13-61)
[2023-05-21] MEDS: GABAPENTIN 400 MG CAPSULE PO SCH ×2 (15:37→21:52)
[2023-05-21] MEDS: SULFAMETHOXAZOLE/TRIMETHOPRIM 800MG/160MG D.S. TABLET PO SCH (15:38)
[2023-05-21] MEDS: APIXABAN 2.5 MG TABLET PO SCH (21:52)
[2023-05-21] MEDS: traZODone HCL 100 MG TABLET (FP) PO SCH (21:52)
[2023-05-21] MEDS: THIAMINE HCL 100 MG TABLET (FP) PO SCH (21:52)
[2023-05-21] MEDS: MELATONIN 5 MG TABLETS PO SCH (21:52)
[2023-05-21] MEDS ORDERED: PATIENT'S OWN MEDICATION (NON-FORMULARY) (Darunavir/Cob/Emtri/Tenof Alaf 1 EACH Tablet) PO SCH (22:00)
[2023-05-21] MEDS: DOLUTEGRAVIR SODIUM 50 MG TABLET (NON-FORMULARY) PO SCH (23:37)
[2023-05-22] MEDS: GABAPENTIN 400 MG CAPSULE PO SCH ×3 (06:33→21:22)
[2023-05-22] MEDS: LOSARTAN POTASSIUM 25 MG TABLET PO SCH (09:55)
[2023-05-22] MEDS: PRENATAL VITAMINS W/ FOLIC ACID TABLET (FP) PO SCH (09:55)
[2023-05-22] MEDS: SULFAMETHOXAZOLE/TRIMETHOPRIM 800MG/160MG D.S. TABLET PO SCH (09:56)
[2023-05-22] MEDS: APIXABAN 2.5 MG TABLET PO SCH ×2 (09:56→21:22)
[2023-05-22] MEDS: NICOTINE 14 MG/24 HOURS TOPICAL PATCH TD SCH (10:50)
[2023-05-22] MEDS: THIAMINE HCL 100 MG TABLET (FP) PO SCH (21:22)
[2023-05-22] MEDS: MELATONIN 5 MG TABLETS PO SCH (21:22)
[2023-05-22] MEDS: traZODone HCL 100 MG TABLET (FP) PO SCH (21:22)
[2023-05-22] MEDS: DOLUTEGRAVIR SODIUM 50 MG TABLET (NON-FORMULARY) PO SCH (21:22)
[2023-05-23] MEDS: GABAPENTIN 400 MG CAPSULE PO SCH ×3 (06:43→21:04)
[2023-05-23] MEDS: SULFAMETHOXAZOLE/TRIMETHOPRIM 800MG/160MG D.S. TABLET PO SCH (10:13)
[2023-05-23] MEDS: LOSARTAN POTASSIUM 25 MG TABLET PO SCH (10:13)
[2023-05-23] MEDS: NICOTINE 14 MG/24 HOURS TOPICAL PATCH TD SCH (10:13)
[2023-05-23] MEDS: APIXABAN 2.5 MG TABLET PO SCH ×2 (10:13→21:05)
[2023-05-23] MEDS: PRENATAL VITAMINS W/ FOLIC ACID TABLET (FP) PO SCH (10:13)
[2023-05-23] MEDS: THIAMINE HCL 100 MG TABLET (FP) PO SCH (21:05)
[2023-05-23] MEDS: traZODone HCL 100 MG TABLET (FP) PO SCH (21:35)
[2023-05-23] MEDS: MELATONIN 5 MG TABLETS PO SCH (21:35)
[2023-05-23] MEDS: DOLUTEGRAVIR SODIUM 50 MG TABLET (NON-FORMULARY) PO SCH (21:35)
[2023-05-24] MEDS: GABAPENTIN 400 MG CAPSULE PO SCH ×3 (06:24→21:22)
[2023-05-24] MEDS: PRENATAL VITAMINS W/ FOLIC ACID TABLET (FP) PO SCH (09:44)
[2023-05-24] MEDS: NICOTINE 14 MG/24 HOURS TOPICAL PATCH TD SCH (09:44)
[2023-05-24] MEDS: APIXABAN 2.5 MG TABLET PO SCH ×2 (09:44→21:22)
[2023-05-24] MEDS: LOSARTAN POTASSIUM 25 MG TABLET PO SCH (09:44)
[2023-05-24] MEDS: SULFAMETHOXAZOLE/TRIMETHOPRIM 800MG/160MG D.S. TABLET PO SCH (09:44)
[2023-05-24] MEDS: MELATONIN 5 MG TABLETS PO SCH (21:23)
[2023-05-24] MEDS: THIAMINE HCL 100 MG TABLET (FP) PO SCH (21:23)
[2023-05-24] MEDS: traZODone HCL 100 MG TABLET (FP) PO SCH (21:23)
[2023-05-24] MEDS: DOLUTEGRAVIR SODIUM 50 MG TABLET (NON-FORMULARY) PO SCH (21:37)
[2023-05-25] MEDS: GABAPENTIN 400 MG CAPSULE PO SCH ×3 (06:09→21:35)
[2023-05-25] MEDS: SULFAMETHOXAZOLE/TRIMETHOPRIM 800MG/160MG D.S. TABLET PO SCH (10:19)
[2023-05-25] MEDS: PRENATAL VITAMINS W/ FOLIC ACID TABLET (FP) PO SCH (10:19)
[2023-05-25] MEDS: LOSARTAN POTASSIUM 25 MG TABLET PO SCH (10:20)
[2023-05-25] MEDS: APIXABAN 2.5 MG TABLET PO SCH ×2 (10:20→21:35)
[2023-05-25] MEDS: NICOTINE 14 MG/24 HOURS TOPICAL PATCH TD SCH (10:21)
[2023-05-25 20:14] LABS: HIV INTERPRETATION PRESUMPTIVE POSITIVE (NEGATIVE)
[2023-05-25] MEDS: DOLUTEGRAVIR SODIUM 50 MG TABLET (NON-FORMULARY) PO SCH (21:35)
[2023-05-25] MEDS: THIAMINE HCL 100 MG TABLET (FP) PO SCH (21:36)
[2023-05-25] MEDS: traZODone HCL 100 MG TABLET (FP) PO SCH (21:36)
[2023-05-25] MEDS: MELATONIN 5 MG TABLETS PO SCH (21:36)
[2023-05-26] MEDS: GABAPENTIN 400 MG CAPSULE PO SCH ×3 (06:32→21:05)
[2023-05-26] MEDS: SULFAMETHOXAZOLE/TRIMETHOPRIM 800MG/160MG D.S. TABLET PO SCH (09:53)
[2023-05-26] MEDS: APIXABAN 2.5 MG TABLET PO SCH ×2 (09:53→21:05)
[2023-05-26] MEDS: NICOTINE 14 MG/24 HOURS TOPICAL PATCH TD SCH (09:53)
[2023-05-26] MEDS: LOSARTAN POTASSIUM 25 MG TABLET PO SCH (09:53)
[2023-05-26] MEDS: PRENATAL VITAMINS W/ FOLIC ACID TABLET (FP) PO SCH (09:53)
[2023-05-26] MEDS: DOLUTEGRAVIR SODIUM 50 MG TABLET (NON-FORMULARY) PO SCH (21:05)
[2023-05-26] MEDS: traZODone HCL 100 MG TABLET (FP) PO SCH (21:05)
[2023-05-26] MEDS: DARUNAVIR/COB/EMTRI/TENOF ALAF 1 EACH TABLET PO SCH (21:06)
[2023-05-26] MEDS: THIAMINE HCL 100 MG TABLET (FP) PO SCH (21:07)
[2023-05-26] MEDS: MELATONIN 5 MG TABLETS PO SCH (21:07)
[2023-05-27] MEDS: GABAPENTIN 400 MG CAPSULE PO SCH ×3 (06:07→21:23)
[2023-05-27] MEDS: APIXABAN 2.5 MG TABLET PO SCH ×2 (10:13→21:23)
[2023-05-27] MEDS: SULFAMETHOXAZOLE/TRIMETHOPRIM 800MG/160MG D.S. TABLET PO SCH (10:14)
[2023-05-27] MEDS: NICOTINE 14 MG/24 HOURS TOPICAL PATCH TD SCH (10:14)
[2023-05-27] MEDS: PRENATAL VITAMINS W/ FOLIC ACID TABLET (FP) PO SCH (10:14)
[2023-05-27] MEDS: LOSARTAN POTASSIUM 25 MG TABLET PO SCH (10:14)
[2023-05-27] MEDS: DARUNAVIR/COB/EMTRI/TENOF ALAF 1 EACH TABLET PO SCH (21:23)
[2023-05-27] MEDS: DOLUTEGRAVIR SODIUM 50 MG TABLET (NON-FORMULARY) PO SCH (21:23)
[2023-05-27] MEDS: traZODone HCL 100 MG TABLET (FP) PO SCH (21:24)
[2023-05-27] MEDS: THIAMINE HCL 100 MG TABLET (FP) PO SCH (21:24)
[2023-05-27] MEDS: MELATONIN 5 MG TABLETS PO SCH (21:24)
[2023-05-28] MEDS: GABAPENTIN 400 MG CAPSULE PO SCH ×3 (06:29→21:17)
[2023-05-28] MEDS: APIXABAN 2.5 MG TABLET PO SCH ×2 (09:36→21:17)
[2023-05-28] MEDS: SULFAMETHOXAZOLE/TRIMETHOPRIM 800MG/160MG D.S. TABLET PO SCH (09:36)
[2023-05-28] MEDS: NICOTINE 14 MG/24 HOURS TOPICAL PATCH TD SCH (09:36)
[2023-05-28] MEDS: LOSARTAN POTASSIUM 25 MG TABLET PO SCH (09:36)
[2023-05-28] MEDS: PRENATAL VITAMINS W/ FOLIC ACID TABLET (FP) PO SCH (09:36)
[2023-05-28] MEDS: DOLUTEGRAVIR SODIUM 50 MG TABLET (NON-FORMULARY) PO SCH (21:17)
[2023-05-28] MEDS: traZODone HCL 100 MG TABLET (FP) PO SCH (21:17)
[2023-05-28] MEDS: MELATONIN 5 MG TABLETS PO SCH (21:17)
[2023-05-28] MEDS: DARUNAVIR/COB/EMTRI/TENOF ALAF 1 EACH TABLET PO SCH (21:17)
[2023-05-28] MEDS: THIAMINE HCL 100 MG TABLET (FP) PO SCH (21:18)
[2023-05-29] MEDS: GABAPENTIN 400 MG CAPSULE PO SCH ×3 (06:19→21:11)
[2023-05-29] MEDS: SULFAMETHOXAZOLE/TRIMETHOPRIM 800MG/160MG D.S. TABLET PO SCH (09:52)
[2023-05-29] MEDS: PRENATAL VITAMINS W/ FOLIC ACID TABLET (FP) PO SCH (09:52)
[2023-05-29] MEDS: APIXABAN 2.5 MG TABLET PO SCH ×2 (09:53→21:11)
[2023-05-29] MEDS: NICOTINE 14 MG/24 HOURS TOPICAL PATCH TD SCH (09:53)
[2023-05-29] MEDS: LOSARTAN POTASSIUM 25 MG TABLET PO SCH (09:53)
[2023-05-29] MEDS: MELATONIN 5 MG TABLETS PO SCH (21:12)
[2023-05-29] MEDS: DOLUTEGRAVIR SODIUM 50 MG TABLET (NON-FORMULARY) PO SCH (21:12)
[2023-05-29] MEDS: traZODone HCL 100 MG TABLET (FP) PO SCH (21:12)
[2023-05-29] MEDS: DARUNAVIR/COB/EMTRI/TENOF ALAF 1 EACH TABLET PO SCH (21:12)
[2023-05-29] MEDS: THIAMINE HCL 100 MG TABLET (FP) PO SCH (21:12)
[2023-05-30] MEDS: GABAPENTIN 400 MG CAPSULE PO SCH ×3 (06:02→21:05)
[2023-05-30] MEDS: LOSARTAN POTASSIUM 25 MG TABLET PO SCH (09:52)
[2023-05-30] MEDS: APIXABAN 2.5 MG TABLET PO SCH ×2 (09:52→21:05)
[2023-05-30] MEDS: PRENATAL VITAMINS W/ FOLIC ACID TABLET (FP) PO SCH (09:52)
[2023-05-30] MEDS: SULFAMETHOXAZOLE/TRIMETHOPRIM 800MG/160MG D.S. TABLET PO SCH (09:52)
[2023-05-30] MEDS: NICOTINE 14 MG/24 HOURS TOPICAL PATCH TD SCH (09:52)
[2023-05-30] MEDS: THIAMINE HCL 100 MG TABLET (FP) PO SCH (21:05)
[2023-05-30] MEDS: DOLUTEGRAVIR SODIUM 50 MG TABLET (NON-FORMULARY) PO SCH (21:05)
[2023-05-30] MEDS: MELATONIN 5 MG TABLETS PO SCH (21:05)
[2023-05-30] MEDS: traZODone HCL 100 MG TABLET (FP) PO SCH (21:05)
[2023-05-30] MEDS: DARUNAVIR/COB/EMTRI/TENOF ALAF 1 EACH TABLET PO SCH (21:05)
[2023-05-31] MEDS: GABAPENTIN 400 MG CAPSULE PO SCH ×3 (06:07→21:19)
[2023-05-31] MEDS: PRENATAL VITAMINS W/ FOLIC ACID TABLET (FP) PO SCH (09:58)
[2023-05-31] MEDS: SULFAMETHOXAZOLE/TRIMETHOPRIM 800MG/160MG D.S. TABLET PO SCH (09:58)
[2023-05-31] MEDS: APIXABAN 2.5 MG TABLET PO SCH ×2 (09:58→21:19)
[2023-05-31] MEDS: NICOTINE 14 MG/24 HOURS TOPICAL PATCH TD SCH (09:58)
[2023-05-31] MEDS: LOSARTAN POTASSIUM 25 MG TABLET PO SCH (09:58)
[2023-05-31] MEDS: DOLUTEGRAVIR SODIUM 50 MG TABLET (NON-FORMULARY) PO SCH (21:19)
[2023-05-31] MEDS: MELATONIN 5 MG TABLETS PO SCH (21:19)
[2023-05-31] MEDS: DARUNAVIR/COB/EMTRI/TENOF ALAF 1 EACH TABLET PO SCH (21:19)
[2023-05-31] MEDS: THIAMINE HCL 100 MG TABLET (FP) PO SCH (21:19)
[2023-05-31] MEDS: traZODone HCL 100 MG TABLET (FP) PO SCH (21:19)
[2023-06-01] MEDS: GABAPENTIN 400 MG CAPSULE PO SCH ×3 (06:01→21:27)
[2023-06-01] MEDS: PRENATAL VITAMINS W/ FOLIC ACID TABLET (FP) PO SCH (09:41)
[2023-06-01] MEDS: LOSARTAN POTASSIUM 25 MG TABLET PO SCH (09:42)
[2023-06-01] MEDS: NICOTINE 14 MG/24 HOURS TOPICAL PATCH TD SCH (09:42)
[2023-06-01] MEDS: SULFAMETHOXAZOLE/TRIMETHOPRIM 800MG/160MG D.S. TABLET PO SCH (09:42)
[2023-06-01] MEDS: APIXABAN 2.5 MG TABLET PO SCH ×2 (09:42→21:26)
[2023-06-01] MEDS: DARUNAVIR/COB/EMTRI/TENOF ALAF 1 EACH TABLET PO SCH (21:26)
[2023-06-01] MEDS: DOLUTEGRAVIR SODIUM 50 MG TABLET (NON-FORMULARY) PO SCH (21:26)
[2023-06-01] MEDS: traZODone HCL 100 MG TABLET (FP) PO SCH (21:27)
[2023-06-01] MEDS: MELATONIN 5 MG TABLETS PO SCH (21:27)
[2023-06-01] MEDS: THIAMINE HCL 100 MG TABLET (FP) PO SCH (21:27)
[2023-06-02] MEDS: GABAPENTIN 400 MG CAPSULE PO SCH ×3 (06:20→21:04)
[2023-06-02] MEDS: PRENATAL VITAMINS W/ FOLIC ACID TABLET (FP) PO SCH (10:01)
[2023-06-02] MEDS: APIXABAN 2.5 MG TABLET PO SCH ×2 (10:01→21:04)
[2023-06-02] MEDS: LOSARTAN POTASSIUM 25 MG TABLET PO SCH (10:02)
[2023-06-02] MEDS: NICOTINE 14 MG/24 HOURS TOPICAL PATCH TD SCH (10:02)
[2023-06-02] MEDS: SULFAMETHOXAZOLE/TRIMETHOPRIM 800MG/160MG D.S. TABLET PO SCH (10:02)
[2023-06-02] MEDS: DOLUTEGRAVIR SODIUM 50 MG TABLET (NON-FORMULARY) PO SCH (21:04)
[2023-06-02] MEDS: traZODone HCL 100 MG TABLET (FP) PO SCH (21:04)
[2023-06-02] MEDS: THIAMINE HCL 100 MG TABLET (FP) PO SCH (21:04)
[2023-06-02] MEDS: MELATONIN 5 MG TABLETS PO SCH (21:04)
[2023-06-02] MEDS: DARUNAVIR/COB/EMTRI/TENOF ALAF 1 EACH TABLET PO SCH (21:04)
[2023-06-03] MEDS: GABAPENTIN 400 MG CAPSULE PO SCH (06:41)
[2023-06-03 06:59] VITALS: TEMP 977
[2023-06-03 09:05] VITALS: BP 109/66; PULSE 61; RESP 16
[2023-06-03] MEDS: LOSARTAN POTASSIUM 25 MG TABLET PO SCH (09:21)
[2023-06-03] MEDS: APIXABAN 2.5 MG TABLET PO SCH (09:21)
[2023-06-03] MEDS: SULFAMETHOXAZOLE/TRIMETHOPRIM 800MG/160MG D.S. TABLET PO SCH (09:21)
[2023-06-03] MEDS: PRENATAL VITAMINS W/ FOLIC ACID TABLET (FP) PO SCH (09:21)
[2023-06-03] MEDS: NICOTINE 14 MG/24 HOURS TOPICAL PATCH TD SCH (09:22)
== END 2023-06-03 09:58 | disposition home or self-care (01) | DRG 772 ==
LOC: YASAS 13:31 → Y3W 16:49
PROVIDERS: ADMIT Allergy & Immunology; ATTEND Psychiatry & Neurology Pain Medicine
PROC: HZ42ZZZ Group Counseling for Substance Abuse Treatment, Cognitive-Behavioral (ICD-10-PCS; principal; 2023-05-20)
DX: F14.20 Cocaine dependence, uncomplicated (principal); F10.20 Alcohol dependence, uncomplicated; F12.20 Cannabis dependence, uncomplicated; F17.210 Nicotine dependence, cigarettes, uncomplicated; F19.282 Other psychoactive substance dependence with psychoactive substance-induced sleep disorder; F34.1 Dysthymic disorder; B20 Human immunodeficiency virus [HIV] disease; G63 Polyneuropathy in diseases classified elsewhere; D72.819 Decreased white blood cell count, unspecified; I10 Essential (primary) hypertension; I48.91 Unspecified atrial fibrillation; Z79.01 Long term (current) use of anticoagulants
CPT/HCPCS: 36415; 80053; 80307; 81003; 85027; 86359; 86360; 86780; 87389; 87635; 87811

== ENCOUNTER 2023-08-18 11:36 | Inpatient (IN) | payer OTHER ==
[2023-08-18 12:20] VITALS: BMI 21.2
[2023-08-18] MEDS ORDERED: BENZOCAINE/MENTHOL (CHLORASEPTIC ) LOZENGE MM PRN (13:26)
[2023-08-18] MEDS ORDERED: NICOTINE POLACRILEX 2 MG GUM BUC PRN (13:26)
[2023-08-18] MEDS ORDERED: guaiFENesin 600 MG TABLET.ER (FP) PO PRN (13:26)
[2023-08-18] MEDS ORDERED: MAGNESIUM HYDROX 2400MG/30ML ORAL SUSPENSION 30 ML CUP PO PRN (13:26)
[2023-08-18] MEDS ORDERED: POLYETHYLENE GLYCOL (HEALTHYLAX) 3350 17 GM PACKET PO PRN (13:26)
[2023-08-18] MEDS ORDERED: LOPERAMIDE HCL 2 MG CAPSULE PO PRN (13:26)
[2023-08-18] MEDS ORDERED: MAG HYDROX/AL HYDROX/SIMETH 30 ML UNIT-DOSE CUP PO PRN (13:26)
[2023-08-18] MEDS ORDERED: NALOXONE HCL (KLOXXADO) 8 MG SPRAY NS PRN (13:26)
[2023-08-18] MEDS ORDERED: IBUPROFEN 600 MG TABLET (FP) PO PRN (13:26)
[2023-08-18] MEDS ORDERED: hydrOXYzine PAMOATE 25 MG CAPSULE (FP) PO PRN (13:26)
[2023-08-18] MEDS ORDERED: BENZONATATE 200 MG CAPSULE PO PRN (13:26)
[2023-08-18] MEDS ORDERED: IBUPROFEN 400 MG TABLET (FP) PO PRN (13:26)
[2023-08-18] MEDS ORDERED: NALOXONE HCL 0.4 MG/ML VIAL IM PRN (13:26)
[2023-08-18] MEDS: THIAMINE HCL 100 MG TABLET (FP) PO SCH (21:19)
[2023-08-18] MEDS: MELATONIN 5 MG TABLETS PO SCH (21:19)
[2023-08-18 23:42] LABS: EPI CELLS 6 /uL (0-25.1); HYALINE CASTS 1 /uL (0-3.1); URINE APPEARANCE CLEAR; URINE BACTERIA 2 /uL (0-1359); URINE BILIRUBIN NEGATIVE (NEGATIVE); URINE COLOR YELLOW; URINE GLUCOSE (UA) NEGATIVE (NEGATIVE); URINE KETONE TRACE (NEGATIVE); URINE LEUK ESTERASE NEGATIVE (NEGATIVE); URINE NITRITE NEGATIVE (NEGATIVE); URINE PROTEIN 1+ (NEGATIVE); URINE RBC 22 /uL (0-23.9); URINE WBC 3 /uL (0-25.8)
[2023-08-19] MEDS: PRENATAL VITAMINS W/ FOLIC ACID TABLET (FP) PO SCH (09:56)
[2023-08-19] MEDS: NICOTINE 14 MG/24 HOURS TOPICAL PATCH TD SCH (09:56)
[2023-08-19 10:01] LABS: HEMATOCRIT 39.4 % (35.4-49); HEMOGLOBIN 13.6 GM/dL (11.7-16.9); MCH 30.6 pg (25.7-33.7); MCHC 34.4 g/dl (32.0-35.9); MEAN CELL VOLUME 88.7 fl (80-96); MEAN PLT VOLUME 10.7 fl (7.5-11.1); PLATELET COUNT 187 10^3/uL (134-434); RBC 4.44 M/mm3 (4.00-5.60); WHITE BLOOD COUNT 2.3 K/mm3 (4.0-10.0)
[2023-08-19 10:37] LABS: POTASSIUM 3.3 mmol/L (3.5-5.1)
[2023-08-19 10:41] LABS: ALBUMIN 3.6 g/dl (3.4-5.0); BLOOD UREA NITROGEN 18.6 mg/dL (7-18); CALCIUM 9.1 mg/dL (8.5-10.1)
[2023-08-19 10:46] LABS: BILIRUBIN,TOTAL 0.2 mg/dL (0.2-1); CREATININE 1.2 mg/dL (0.55-1.3)
[2023-08-19 10:48] LABS: TOT PROT 7.8 g/dl (6.4-8.2)
[2023-08-19] MEDS: SULFAMETHOXAZOLE/TRIMETHOPRIM 800MG/160MG D.S. TABLET PO SCH (12:00)
[2023-08-19] MEDS: ACETAMINOPHEN 325 MG TABLET (FP) PO PRN ×2 (12:21→22:02)
[2023-08-19] MEDS: MELATONIN 5 MG TABLETS PO SCH (21:19)
[2023-08-19] MEDS: THIAMINE HCL 100 MG TABLET (FP) PO SCH (21:19)
[2023-08-19] MEDS: CARVEDILOL 3.125 MG TABLET (FP) PO SCH (21:21)
[2023-08-19] MEDS: SACUBITRIL/VALSARTAN 24 MG-26 MG TABLET PO SCH (21:21)
[2023-08-19] MEDS: APIXABAN 2.5 MG TABLET PO SCH (21:21)
[2023-08-19] MEDS ORDERED: SUVOREXANT 5 MG TABLET PO PRN (22:00)
[2023-08-19] MEDS ORDERED: SACUBITRIL/VALSARTAN 24 MG-26 MG TABLET PO SCH (22:00)
[2023-08-19] MEDS ORDERED: CARVEDILOL 3.125 MG TABLET (FP) PO SCH (22:00)
[2023-08-20] MEDS: CARVEDILOL 3.125 MG TABLET (FP) PO SCH ×2 (10:07→21:34)
[2023-08-20] MEDS: SACUBITRIL/VALSARTAN 24 MG-26 MG TABLET PO SCH ×2 (10:07→21:32)
[2023-08-20] MEDS: APIXABAN 2.5 MG TABLET PO SCH ×2 (10:08→21:32)
[2023-08-20] MEDS: NICOTINE 14 MG/24 HOURS TOPICAL PATCH TD SCH (10:08)
[2023-08-20] MEDS: SULFAMETHOXAZOLE/TRIMETHOPRIM 800MG/160MG D.S. TABLET PO SCH (10:08)
[2023-08-20] MEDS: PRENATAL VITAMINS W/ FOLIC ACID TABLET (FP) PO SCH (10:08)
[2023-08-20] MEDS: POTASSIUM CHLORIDE TABS 20 MEQ TABLET.ER (FP) PO SCH ×2 (12:44→21:33)
[2023-08-20] MEDS: GABAPENTIN 400 MG CAPSULE PO SCH ×2 (13:52→21:32)
[2023-08-20] MEDS: MELATONIN 5 MG TABLETS PO SCH (21:32)
[2023-08-20] MEDS: BACLOFEN 10 MG TABLET (FP) PO SCH (21:34)
[2023-08-20] MEDS: THIAMINE HCL 100 MG TABLET (FP) PO SCH (21:35)
[2023-08-21] MEDS: GABAPENTIN 400 MG CAPSULE PO SCH ×3 (06:45→21:29)
[2023-08-21] MEDS: SULFAMETHOXAZOLE/TRIMETHOPRIM 800MG/160MG D.S. TABLET PO SCH (09:45)
[2023-08-21] MEDS: SACUBITRIL/VALSARTAN 24 MG-26 MG TABLET PO SCH ×2 (09:45→22:46)
[2023-08-21] MEDS: PRENATAL VITAMINS W/ FOLIC ACID TABLET (FP) PO SCH (09:45)
[2023-08-21] MEDS: APIXABAN 2.5 MG TABLET PO SCH ×2 (09:46→21:29)
[2023-08-21] MEDS: BACLOFEN 10 MG TABLET (FP) PO SCH ×2 (09:46→21:29)
[2023-08-21] MEDS: CARVEDILOL 3.125 MG TABLET (FP) PO SCH ×2 (09:46→22:46)
[2023-08-21] MEDS: NICOTINE 14 MG/24 HOURS TOPICAL PATCH TD SCH (09:47)
[2023-08-21] MEDS ORDERED: NALTREXONE HCL 50 MG TABLET PO ONE (10:00)
[2023-08-21] MEDS: MELATONIN 5 MG TABLETS PO SCH (21:29)
[2023-08-21] MEDS: THIAMINE HCL 100 MG TABLET (FP) PO SCH (21:30)
[2023-08-22] MEDS: GABAPENTIN 400 MG CAPSULE PO SCH ×3 (06:35→21:22)
[2023-08-22] MEDS: BACLOFEN 10 MG TABLET (FP) PO SCH ×2 (10:05→21:23)
[2023-08-22] MEDS: SULFAMETHOXAZOLE/TRIMETHOPRIM 800MG/160MG D.S. TABLET PO SCH (10:05)
[2023-08-22] MEDS: SACUBITRIL/VALSARTAN 24 MG-26 MG TABLET PO SCH ×2 (10:05→21:21)
[2023-08-22] MEDS: CARVEDILOL 3.125 MG TABLET (FP) PO SCH ×2 (10:05→21:21)
[2023-08-22] MEDS: APIXABAN 2.5 MG TABLET PO SCH ×2 (10:06→21:21)
[2023-08-22] MEDS: NICOTINE 14 MG/24 HOURS TOPICAL PATCH TD SCH (10:06)
[2023-08-22] MEDS: PRENATAL VITAMINS W/ FOLIC ACID TABLET (FP) PO SCH (10:06)
[2023-08-22] MEDS: NALTREXONE HCL 50 MG TABLET PO SCH (10:07)
[2023-08-22] MEDS: THIAMINE HCL 100 MG TABLET (FP) PO SCH (21:21)
[2023-08-22] MEDS: MELATONIN 5 MG TABLETS PO SCH (21:21)
[2023-08-22] MEDS: SUVOREXANT 5 MG TABLET PO PRN (21:23)
[2023-08-23] MEDS: GABAPENTIN 400 MG CAPSULE PO SCH ×3 (06:41→21:21)
[2023-08-23] MEDS: CARVEDILOL 3.125 MG TABLET (FP) PO SCH ×2 (10:14→21:21)
[2023-08-23] MEDS: SULFAMETHOXAZOLE/TRIMETHOPRIM 800MG/160MG D.S. TABLET PO SCH (10:14)
[2023-08-23] MEDS: BACLOFEN 10 MG TABLET (FP) PO SCH ×2 (10:15→21:21)
[2023-08-23] MEDS: APIXABAN 2.5 MG TABLET PO SCH ×2 (10:15→21:21)
[2023-08-23] MEDS: NALTREXONE HCL 50 MG TABLET PO SCH (10:15)
[2023-08-23] MEDS: SACUBITRIL/VALSARTAN 24 MG-26 MG TABLET PO SCH ×2 (10:15→21:21)
[2023-08-23] MEDS: NICOTINE 14 MG/24 HOURS TOPICAL PATCH TD SCH (10:16)
[2023-08-23] MEDS: PRENATAL VITAMINS W/ FOLIC ACID TABLET (FP) PO SCH (10:16)
[2023-08-23] MEDS: MELATONIN 5 MG TABLETS PO SCH (21:21)
[2023-08-23] MEDS: THIAMINE HCL 100 MG TABLET (FP) PO SCH (21:21)
[2023-08-23] MEDS: SUVOREXANT 5 MG TABLET PO PRN (21:22)
[2023-08-24 06:31] VITALS: RESP 16; TEMP 97.5
[2023-08-24] MEDS: GABAPENTIN 400 MG CAPSULE PO SCH (07:02)
[2023-08-24 08:56] VITALS: BP 123/81; PULSE 69
[2023-08-24] MEDS: APIXABAN 2.5 MG TABLET PO SCH (09:08)
[2023-08-24] MEDS: CARVEDILOL 3.125 MG TABLET (FP) PO SCH (09:08)
[2023-08-24] MEDS: SACUBITRIL/VALSARTAN 24 MG-26 MG TABLET PO SCH (09:08)
[2023-08-24] MEDS: SULFAMETHOXAZOLE/TRIMETHOPRIM 800MG/160MG D.S. TABLET PO SCH (09:09)
[2023-08-24] MEDS: NICOTINE 14 MG/24 HOURS TOPICAL PATCH TD SCH (09:09)
[2023-08-24] MEDS: BACLOFEN 10 MG TABLET (FP) PO SCH (09:09)
[2023-08-24] MEDS: NALTREXONE HCL 50 MG TABLET PO SCH (09:10)
[2023-08-24] MEDS: PRENATAL VITAMINS W/ FOLIC ACID TABLET (FP) PO SCH (09:10)
== END 2023-08-24 09:13 | disposition home or self-care (01) | DRG 772 ==
LOC: YASAS 11:36 → Y3E 17:51
PROVIDERS: ADMIT Allergy & Immunology; ATTEND Psychiatry & Neurology Pain Medicine
PROC: HZ42ZZZ Group Counseling for Substance Abuse Treatment, Cognitive-Behavioral (ICD-10-PCS; principal; 2023-08-18)
DX: F10.20 Alcohol dependence, uncomplicated (principal); F14.20 Cocaine dependence, uncomplicated; F12.20 Cannabis dependence, uncomplicated; F17.210 Nicotine dependence, cigarettes, uncomplicated; F19.24 Other psychoactive substance dependence with psychoactive substance-induced mood disorder; Z21 Asymptomatic human immunodeficiency virus [HIV] infection status; G62.9 Polyneuropathy, unspecified; G47.00 Insomnia, unspecified; E87.6 Hypokalemia; I10 Essential (primary) hypertension; I48.91 Unspecified atrial fibrillation; Z79.01 Long term (current) use of anticoagulants; Z59.00 Homelessness unspecified
CPT/HCPCS: 36415; 80053; 80307; 81003; 84132; 85027; 86780; 87635; J0475

== ENCOUNTER 2023-10-13 09:39 | Inpatient (IN) | payer OTHER ==
[2023-10-13 10:27] VITALS: BMI 22.1
[2023-10-13] MEDS ORDERED: NICOTINE POLACRILEX 2 MG GUM BUC PRN (13:29)
[2023-10-13] MEDS ORDERED: BENZONATATE 200 MG CAPSULE PO PRN (13:29)
[2023-10-13] MEDS ORDERED: POLYETHYLENE GLYCOL (HEALTHYLAX) 3350 17 GM PACKET PO PRN (13:29)
[2023-10-13] MEDS ORDERED: hydrOXYzine PAMOATE 25 MG CAPSULE (FP) PO PRN (13:29)
[2023-10-13] MEDS ORDERED: MAG HYDROX/AL HYDROX/SIMETH 30 ML UNIT-DOSE CUP PO PRN (13:29)
[2023-10-13] MEDS ORDERED: LOPERAMIDE HCL 2 MG CAPSULE PO PRN (13:29)
[2023-10-13] MEDS ORDERED: NALOXONE HCL (KLOXXADO) 8 MG SPRAY NS PRN (13:29)
[2023-10-13] MEDS ORDERED: NALOXONE HCL 0.4 MG/ML VIAL IM PRN (13:29)
[2023-10-13] MEDS ORDERED: IBUPROFEN 400 MG TABLET (FP) PO PRN (13:29)
[2023-10-13] MEDS ORDERED: MAGNESIUM HYDROX 2400MG/30ML ORAL SUSPENSION 30 ML CUP PO PRN (13:29)
[2023-10-13] MEDS: IBUPROFEN 600 MG TABLET (FP) PO PRN (19:05)
[2023-10-13] MEDS: METHOCARBAMOL 500 MG TABLET PO PRN (19:06)
[2023-10-13] MEDS: DOLUTEGRAVIR SODIUM 50 MG TABLET (NON-FORMULARY) PO SCH (22:11)
[2023-10-13] MEDS: SACUBITRIL/VALSARTAN 24 MG-26 MG TABLET PO SCH (22:11)
[2023-10-13] MEDS: MELATONIN 5 MG TABLETS PO SCH (22:11)
[2023-10-13] MEDS: APIXABAN 2.5 MG TABLET PO SCH (22:11)
[2023-10-13] MEDS: traZODone HCL 100 MG TABLET (FP) PO SCH (22:11)
[2023-10-13] MEDS: THIAMINE HCL 100 MG TABLET (FP) PO SCH (22:12)
[2023-10-13] MEDS: DARUNAVIR/COB/EMTRI/TENOF ALAF 1 EACH TABLET PO SCH (22:14)
[2023-10-13] MEDS: CARVEDILOL 3.125 MG TABLET (FP) PO SCH (22:14)
[2023-10-13] MEDS: ACETAMINOPHEN 325 MG TABLET (FP) PO PRN (22:17)
[2023-10-14 08:59] LABS: HEMATOCRIT 38.7 % (35.4-49); HEMOGLOBIN 13.1 GM/dL (11.7-16.9); MCH 30.4 pg (25.7-33.7); MEAN CELL VOLUME 89.5 fl (80-96); MEAN PLT VOLUME 8.5 fl (7.5-11.1); PLATELET COUNT 204 10^3/uL (134-434); RBC 4.32 M/mm3 (4.00-5.60); RDW 14.2 % (11.9-15.9); WHITE BLOOD COUNT 2.8 K/mm3 (4.0-10.0)
[2023-10-14 08:59] LABS: PH,URINE 6.5 (5.0-8.0); URINE APPEARANCE CLEAR; URINE BILIRUBIN NEGATIVE (NEGATIVE); URINE COLOR YELLOW; URINE GLUCOSE (UA) NEGATIVE (NEGATIVE); URINE KETONE NEGATIVE (NEGATIVE); URINE LEUK ESTERASE NEGATIVE (NEGATIVE); URINE NITRITE NEGATIVE (NEGATIVE); URINE PROTEIN NEGATIVE (NEGATIVE); URINE UROBILINOGEN 0.2 mg/dL (0.2-1.0)
[2023-10-14 09:25] LABS: POTASSIUM 3.8 mmol/L (3.5-5.1)
[2023-10-14 09:28] LABS: ALBUMIN 3.2 g/dl (3.4-5.0); BLOOD UREA NITROGEN 17.9 mg/dL (7-18); CALCIUM 8.8 mg/dL (8.5-10.1)
[2023-10-14 09:31] LABS: CREATININE 1.1 mg/dL (0.55-1.3)
[2023-10-14 09:33] LABS: BILIRUBIN,TOTAL 0.7 mg/dL (0.2-1); TOT PROT 7.3 g/dl (6.4-8.2)
[2023-10-14] MEDS: SULFAMETHOXAZOLE/TRIMETHOPRIM 800MG/160MG D.S. TABLET PO SCH (10:23)
[2023-10-14] MEDS: PRENATAL VITAMINS W/ FOLIC ACID TABLET (FP) PO SCH (10:24)
[2023-10-14] MEDS: FUROSEMIDE 20 MG TABLET (FP) PO SCH (10:24)
[2023-10-14] MEDS: NICOTINE 14 MG/24 HOURS TOPICAL PATCH TD SCH (10:24)
[2023-10-14] MEDS: LOSARTAN POTASSIUM 25 MG TABLET PO SCH (10:47)
[2023-10-14 11:48] LABS: SYPHILIS W/ RPR CONF NON-REACTIVE (NONREACTIVE)
[2023-10-14] MEDS: GABAPENTIN 400 MG CAPSULE PO SCH (13:07)
[2023-10-14] MEDS: guaiFENesin 600 MG TABLET.ER (FP) PO PRN (13:07)
[2023-10-14] MEDS: BENZOCAINE/MENTHOL (CHLORASEPTIC ) LOZENGE MM PRN (13:08)
[2023-10-24] MEDS ORDERED: METHYL SALICYLATE/MENTHOL OINT 30 GM TUBE TP PRN (11:58)
[2023-10-27 03:06] VITALS: BP 121/76; PULSE 73; RESP 18; TEMP 97.6
== END 2023-10-27 03:06 | disposition left against medical advice (07) | DRG 770 ==
LOC: YASAS 09:39 → Y3NR 13:47 → Y3W 10-14 12:37
PROVIDERS: ADMIT Allergy & Immunology; ATTEND Psychiatry & Neurology Pain Medicine
PROC: HZ42ZZZ Group Counseling for Substance Abuse Treatment, Cognitive-Behavioral (ICD-10-PCS; principal; 2023-10-13)
DX: F10.20 Alcohol dependence, uncomplicated (principal); F14.20 Cocaine dependence, uncomplicated; F12.20 Cannabis dependence, uncomplicated; F17.210 Nicotine dependence, cigarettes, uncomplicated; F19.282 Other psychoactive substance dependence with psychoactive substance-induced sleep disorder; F19.24 Other psychoactive substance dependence with psychoactive substance-induced mood disorder; Z21 Asymptomatic human immunodeficiency virus [HIV] infection status; G62.9 Polyneuropathy, unspecified; G47.00 Insomnia, unspecified; I11.0 Hypertensive heart disease with heart failure; I50.9 Heart failure, unspecified; I48.91 Unspecified atrial fibrillation; Z79.01 Long term (current) use of anticoagulants; Z79.899 Other long term (current) drug therapy; R00.1 Bradycardia, unspecified; R94.31 Abnormal electrocardiogram [ECG] [EKG]
CPT/HCPCS: 36415; 80053; 80307; 81003; 82550; 84484; 85027; 86780; 86803; 87811; 93005; 93010